=== PATIENT | male | born 1955 | race Caucasian/White ===

== ENCOUNTER → 2016-11-27 | Outpatient (CLI) | payer BC ==
--- NOTE | 2016-11-27 17:20 | CT ---
EXAMINATION TYPE: CT urogram wo/w con DATE OF EXAM: 11/27/2016 4:58 PM COMPARISON: Previous CT scan of the chest, abdomen and pelvis dated 08/27/2015. HISTORY: Episode of hematuria. History of prostate cancer CT DLP: 2176.2 mGycm Automated exposure control for dose reduction was used. CONTRAST: Performed with IV Contrast, patient injected with 100 mL of Omnipaque 350. FINDINGS: Visualized portions of the lungs are clear. There is no pleural or pericardial fluid. The h eart is mildly enlarged. Within the abdomen, the liver, spleen and gallbladder are normal. Both adrenal glands are normal. There is a stable, 9.4 nonobstructing calculus in the posterior mid polar calyx of the right kidney. There is a 2.9 cm low attenuating lesion arising from the mid polar region of the right kidney. Time evaluation mean value is 66.76 which is above that of normal fluid. This, however has not progressed from the previous study. There is a stable 4.8 cm, simple appearing cyst seen arising from the lower pole of the left kidney and immediately adjacent to this is an attenuating 1.5 cm lesion. Previously this measured 1.2 cm. The pancreas is unremarkable. The nodule posteriorly on the right in the bladder has increased in size from 11.5 mm to 21.1 mm. There is no significant diverticular change and there is no evidence of diverticulitis. Small bowel loops are normal. No free air and no free fluid is seen. There is facet arthropathy within the lumbar spine. No blastic or lytic lesions are seen. IMPRESSION: 1. ENLARGING LESION IN THE POSTERIOR ASPECT OF THE BLADDER. 2. STABLE HYPOATTENUATING LESION IN THE RIGHT KIDNEY. 3. STABLE NONOBSTRUCTING 9.4 MM CALCULUS IN THE POSTERIOR MID POLAR CALYX OF THE RIGHT KIDNEY. 4. ENLARGING LESION IN THE LEFT LOWER POLE WHICH HAS GONE FROM 1.2 CM TO 1.5 CM. 5. DEGENERATIVE CHANGES WITHIN THE SPINE.
== END | disposition home or self-care (01) ==
LOC: RADCTMAIN 15:25
PROVIDERS: ATTEND Urology
DX: N20.0 Calculus of kidney (principal); N32.89 Other specified disorders of bladder; N32.9 Bladder disorder, unspecified; N28.89 Other specified disorders of kidney and ureter
CPT/HCPCS: 74178; 74400; Q9967

== ENCOUNTER 2017-01-08 11:42 | Day surgery (SDC) | payer BC ==
[2017-01-06 14:47] VITALS: BMI 29.7
[2017-01-08 12:28] VITALS: TEMP 98
[2017-01-08] MEDS: LACTATED RINGERS 1,000 ML IV SCH ×2 (12:50→12:55)
[2017-01-08] MEDS ORDERED: LIDOCAINE 1% 20 ML VIAL (10MG/ML) FOR IV START INTRADERMA ONE ×2 (12:50→12:55)
[2017-01-08] MEDS ORDERED: PROPOFOL 10 MG/ML 20 ML VIAL IV ONE (13:14)
--- NOTE | 2017-01-08 13:28 | P.PCN ---
Date of Procedure: 01/08/17 Procedure(s) Performed: BRIEF HISTORY: Patient is a 61-year-old pleasant white male, scheduled for an elective sigmoid scope he as a part of evaluation of intermittent rectal bleeding for the last 1 month duration. The patient was recently diagnosed with prostate cancer with metastasis to the bladder. He scheduled for a flexible sigmoidoscopy to rule out rectal involvement. PROCEDURE PERFORMED: Flexible sigmoidoscopy PREOPERATIVE DIAGNOSIS: Rectal bleeding/history of prostate CA with bladder involvement. IV sedation per Anesthesia. PROCEDURE: After informed consent was obtained, the patient, was brought into the endoscopy unit. IV sedation was administered by Anesthesia under continuous monitoring. Digital rectal examination was normal. Initially the Olympus CF- 160 flexible video colonoscope was then inserted in the rectum, gradually advanced into the spell flexure and carefully examination was performed as the scope was gradually being withdrawn. The mucosa of descending colon, sigmoid colon, and rectum appeared normal. Retroflexion was performed in the rectum and small internal hemorrhoids were seen. The patient tolerated the procedure well. IMPRESSION: Normal-appearing colon from rectum to splenic flexure with no evidence of colitis, colorectal neoplasia. Small internal hemorrhoids. RECOMMENDATIONS: Findings of this examination were discussed with the patient as well as his family. He was advised to be a high-fiber diet and take fiber supplements on a regular basis.
[2017-01-08 13:29] VITALS: RESP 18
[2017-01-08 13:57] VITALS: BP 136/79; PULSE 55
== END 2017-01-08 14:15 | disposition home or self-care (01) ==
LOC: ORWHC2ENDO 11:42
PROVIDERS: ATTEND Internal Medicine Gastroenterology
DX: K64.8 Other hemorrhoids (principal); Z87.19 Personal history of other diseases of the digestive system; Z85.46 Personal history of malignant neoplasm of prostate; Z85.51 Personal history of malignant neoplasm of bladder; I10 Essential (primary) hypertension; Z86.73 Personal history of transient ischemic attack (TIA), and cerebral infarction without residual deficits; K21.9 Gastro-esophageal reflux disease without esophagitis; Z79.899 Other long term (current) drug therapy; Z88.1 Allergy status to other antibiotic agents; Z88.5 Allergy status to narcotic agent; Z88.0 Allergy status to penicillin; Z88.2 Allergy status to sulfonamides; Z91.018 Allergy to other foods
CPT/HCPCS: 45330; J2704

== ENCOUNTER 2017-04-25 12:24 | Inpatient (IN) | payer BC ==
[2017-04-25] MEDS ORDERED: SODIUM CHLORIDE 0.9% 1,000 ML IV STA ×2 (12:40→14:51)
[2017-04-25] MEDS ORDERED: MORPHINE SULFATE 4 MG/ML SYRINGE IV STA (12:40)
--- NOTE | 2017-04-25 12:40 | ED ---
General Adult HPI - General Chief complaint: Abdominal Pain Stated complaint: Back Pain Time Seen by Provider: 04/25/17 12:39 Source: patient, RN notes reviewed, old records reviewed Mode of arrival: wheelchair Limitations: no limitations - History of Present Illness Initial comments: This is a 61-year-old male here for evaluation of the. Patient presented here for evaluation regarding about pain abdominal pain left-sided flank pain. Severe. Presents complaints he has kidney stone. Recent radiation therapy for prostate CA, patient did have urine test 3 days ago which was negative for urinary tract infection. Patient has no nausea vomiting, no fever, episodic diarrhea. Patient states he does have history of celiac disease and thinks that 's related and and Bentyl related. Patient has been episodic for about 3-4 weeks now which is progressively worse over the last 3 days - Related Data Home Medications Medication Instructions Recorded Confirmed Melatonin 3 mg PO HS PRN 04/14/16 04/25/17 Multivitamin [Men's Multi-Vitamin] 1 tab PO HS 04/14/16 04/25/17 Vitamin B Complex 1 cap PO HS 04/14/16 04/25/17 cloNIDine HCL [Catapres] 0.1 mg PO BID 04/14/16 04/25/17 Chlorthalidone 25 mg PO DAILY 04/25/17 04/25/17 Tamsulosin [Flomax] 0.4 mg PO DAILY 04/25/17 04/25/17 Previous Rx's Medication Instructions Recorded Lisinopril [Zestril] 40 mg PO DAILY #60 tab 04/16/16 Allergies Allergy/AdvReac Type Severity Reaction Status Date / Time gluten Allergy Abdominal Verified 04/25/17 13:40 Pain hydrocodone bitartrate Allergy Abdominal Verified 04/25/17 13:40 [From Vicodin] Pain nitrofurantoin Allergy Unknown Verified 04/25/17 13:40 [From Macrobid] nitrofurantoin Allergy Unknown Verified 04/25/17 13:40 macrocrystalline [From Macrobid] Penicillins Allergy Rash/Hives Verified 04/25/17 13:40 Sulfa (Sulfonamide Allergy Rash/Hives Verified 04/25/17 13:40 Antibiotics) sulfacetamide sodium Allergy Rash/Hives Verified 04/25/17 13:40 [From Sulfamide] Review of Systems ROS Statement: Those systems with pertinent positive or pertinent negative responses have been documented in the HPI. ROS Other: All systems not noted in ROS Statement are negative. Past Medical History Past Medical History: CVA/TIA, GERD/Reflux, GI Bleed, Hypertension, Osteoarthritis (OA) Additional Past Medical History / Comment(s): PROSTATE CANCER, RIGHT BUNDLE BLOCK, HEART MURMUR, (2) TIA'S, CELIAC DISEASE-FOLLOWS GLUTEN FREE DIET,HX OF SHINGLES X3, CYSTS ON KIDNEYS, HIATAL HERNIA. History of Any Multi-Drug Resistant Organisms: None Reported Past Surgical History: Adenoidectomy, Heart Catheterization, Hernia Repair, Orthopedic Surgery, Prostate Surgery, Tonsillectomy Additional Past Surgical History / Comment(s): CERVICAL SPINAL FUSION X2-BONE TAKEN FROM HIP FOR CERVICAL FUSION WHICH HERNIATED X2 AT SITE., PROSTATECTOMY, KENYON ROTATOR CUFF REPAIR, ING HERNIA. Past Anesthesia/Blood Transfusion Reactions: No Reported Reaction, Motion Sickness Past Psychological History: No Psychological Hx Reported Smoking Status: Never smoker Past Alcohol Use History: None Reported Past Drug Use History: None Reported - Past Family History Father Family Medical History: Cancer, Hypertension, Prostate Disorder Additional Family Medical History / Comment(s): prostate cancer at age 87 Mother Family Medical History: Cancer Additional Family Medical History / Comment(s): colon ca, General Exam Limitations: no limitations General appearance: alert, in no apparent distress, anxious Head exam: Present: atraumatic, normocephalic, normal inspection Eye exam: Present: normal appearance, PERRL, EOMI. Absent: scleral icterus, conjunctival injection, periorbital swelling ENT exam: Present: normal exam, mucous membranes moist Neck exam: Present: normal inspection. Absent: tenderness, meningismus, lymphadenopathy Respiratory exam: Present: normal lung sounds bilaterally. Absent: respiratory distress, wheezes, rales, rhonchi, stridor Cardiovascular Exam: Present: regular rate, normal rhythm, normal heart sounds. Absent: systolic murmur, diastolic murmur, rubs, gallop, clicks GI/Abdominal exam: Present: soft, normal bowel sounds. Absent: distended, tenderness, guarding, rebound, rigid Extremities exam: Present: normal inspection, full ROM, normal capillary refill. Absent: tenderness, pedal edema, joint swelling, calf tenderness Back exam: Present: normal inspection Neurological exam: Present: alert, oriented X3, CN II-XII intact Psychiatric exam: Present: normal affect, normal mood Skin exam: Present: warm, dry, intact, normal color. Absent: rash Course Vital Signs 04/25/17 12:33 Temperature 98.1 F Pulse Rate 88 Respiratory 18 Rate Blood Pressure 121/85 O2 Sat by Pulse 98 Oximetry - Reevaluation(s) Reevaluation #1: 04/25/17 14:53 Patient does have mild pain control at this time although still with pain, no nausea or vomiting patient does admit to having a bowel movement yesterday Medical Decision Making - Medical Decision Making 58 female here for evaluation of severe abdominal pain. Patient thinks kidney stone, CT shows ileus, patient has ileus likely related to recent radiation, will admit for nothing by mouth IV hydration and pain control - Lab Data Result diagrams: 04/25/17 13:00 04/25/17 13:00 Lab Results 04/25/17 04/25/17 04/25/17 Range/Units 13:00 13:00 13:00 WBC 7.1 (3.8-10.6) k/uL RBC 4.73 (4.30-5.90) m/uL Hgb 14.6 (13.0-17.5) gm/dL Hct 42.0 (39.0-53.0) % MCV 88.7 (80.0-100.0) fL MCH 30.7 (25.0-35.0) pg MCHC 34.6 (31.0-37.0) g/dL RDW 14.4 (11.5-15.5) % Plt Count 203 (150-450) k/uL Neutrophils % 58 % Lymphocytes % 6 % Monocytes % 5 % Eosinophils % 27 % Basophils % 1 % Neutrophils # 4.1 (1.3-7.7) k/uL Lymphocytes # 0.4 L (1.0-4.8) k/uL Monocytes # 0.4 (0-1.0) k/uL Eosinophils # 1.9 H (0-0.7) k/uL Basophils # 0.1 (0-0.2) k/uL Manual Slide Review Performed Sodium 140 (137-145) mmol/L Potassium 3.8 (3.5-5.1) mmol/L Chloride 102 (98-107) mmol/L Carbon Dioxide 28 (22-30) mmol/L Anion Gap 10 mmol/L BUN 16 (9-20) mg/dL Creatinine 0.86 (0.66-1.25) mg/dL Est GFR (MDRD) Af Amer >60 (>60 ml/min/1.73 sqM) Est GFR (MDRD) Non-Af >60 (>60 ml/min/1.73 sqM) Glucose 111 H (74-99) mg/dL Plasma Lactic Acid Amaury 1.8 (0.7-2.0) mmol/L Calcium 9.2 (8.4-10.2) mg/dL Total Bilirubin 0.6 (0.2-1.3) mg/dL AST 27 (17-59) U/L ALT 37 (21-72) U/L Alkaline Phosphatase 111 (38-126) U/L Total Protein 6.6 (6.3-8.2) g/dL Albumin 3.9 (3.5-5.0) g/dL Amylase 53 (30-110) U/L Lipase 59 (23-300) U/L Urine Color Urine Appearance (Clear) Urine pH (5.0-8.0) Ur Specific [place] (1.001-1.035) Urine Protein (Negative) Urine Glucose (UA) (Negative) Urine Ketones (Negative) Urine Blood (Negative) Urine Nitrite (Negative) Urine Bilirubin (Negative) Urine Urobilinogen (<2.0) mg/dL Ur Leukocyte Esterase (Negative) Urine RBC (0-5) /hpf Urine WBC (0-5) /hpf Urine Mucus (None) /hpf 04/25/17 Range/Units 13:00 WBC (3.8-10.6) k/uL RBC (4.30-5.90) m/uL Hgb (13.0-17.5) gm/dL Hct (39.0-53.0) % MCV (80.0-100.0) fL MCH (25.0-35.0) pg MCHC (31.0-37.0) g/dL RDW (11.5-15.5) % Plt Count (150-450) k/uL Neutrophils % % Lymphocytes % % Monocytes % % Eosinophils % % Basophils % % Neutrophils # (1.3-7.7) k/uL Lymphocytes # (1.0-4.8) k/uL Monocytes # (0-1.0) k/uL Eosinophils # (0-0.7) k/uL Basophils # (0-0.2) k/uL Manual Slide Review Sodium (137-145) mmol/L Potassium (3.5-5.1) mmol/L Chloride (98-107) mmol/L Carbon Dioxide (22-30) mmol/L Anion Gap mmol/L BUN (9-20) mg/dL Creatinine (0.66-1.25) mg/dL Est GFR (MDRD) Af Amer (>60 ml/min/1.73 sqM) Est GFR (MDRD) Non-Af (>60 ml/min/1.73 sqM) Glucose (74-99) mg/dL Plasma Lactic Acid Amaury (0.7-2.0) mmol/L Calcium (8.4-10.2) mg/dL Total Bilirubin (0.2-1.3) mg/dL AST (17-59) U/L ALT (21-72) U/L Alkaline Phosphatase (38-126) U/L Total Protein (6.3-8.2) g/dL Albumin (3.5-5.0) g/dL Amylase (30-110) U/L Lipase (23-300) U/L Urine Color Yellow Urine Appearance Clear (Clear) Urine pH 5.5 (5.0-8.0) Ur Specific [place] 1.011 (1.001-1.035) Urine Protein Negative (Negative) Urine Glucose (UA) Negative (Negative) Urine Ketones Negative (Negative) Urine Blood Moderate H (Negative) Urine Nitrite Negative (Negative) Urine Bilirubin Negative (Negative) Urine Urobilinogen <2.0 (<2.0) mg/dL Ur Leukocyte Esterase Negative (Negative) Urine RBC 9 H (0-5) /hpf Urine WBC 5 (0-5) /hpf Urine Mucus Rare H (None) /hpf - Radiology Data Radiology results: report reviewed (CT pelvis positive for ileus), image reviewed Disposition Clinical Impression: Abdominal pain Disposition: ADMITTED IP TO THIS [facility] Condition: Fair Referrals: Andres Quinn DO [Primary Care Provider] - 1-2 days
[2017-04-25 13:12] LABS: Basophils # (A) 0.1 k/uL (0-0.2); Basophils % (A) 1 %; CH 32.4; CHCM 36.7; Eosinophils # (A) 1.9 k/uL (0-0.7); Eosinophils % (A) 27 %; HDW 2.89; HGB 14.6 gm/dL (13.0-17.5); Luc # (Auto) 0.18; Luc % (Auto) 3; Lymphocytes # (A) 0.4 k/uL (1.0-4.8); Lymphocytes % (A) 6 %; MCH 30.7 pg (25.0-35.0); MCHC 34.6 g/dL (31.0-37.0); MCV 88.7 fL (80.0-100.0); Mean Platelet Volume 6.7; Monocytes # (A) 0.4 k/uL (0-1.0); Monocytes % (A) 5 %; Neutrophils # (A) 4.1 k/uL (1.3-7.7); Neutrophils % (A) 58 %; RBC 4.73 m/uL (4.30-5.90); RDW 14.4 % (11.5-15.5); WBC 7.1 k/uL (3.8-10.6); WBC (Perox) 7.02
[2017-04-25 13:20] LABS: ALT 37 U/L (21-72); AST 27 U/L (17-59); Alkaline Phosphatase 111 U/L (38-126); Amylase 53 U/L (30-110); Anion Gap 10 mmol/L; Blood Urea Nitrogen 16 mg/dL (9-20); Calcium 9.2 mg/dL (8.4-10.2); Carbon Dioxide 28 mmol/L (22-30); Chloride 102 mmol/L (98-107); Glucose 111 mg/dL (74-99); Non-African American GFR(MDRD) >60 (>60 ml/min/1.73 sqM); Potassium 3.8 mmol/L (3.5-5.1); Sodium 140 mmol/L (137-145); Total Bilirubin 0.6 mg/dL (0.2-1.3); Total Protein 6.6 g/dL (6.3-8.2)
[2017-04-25 13:25] LABS: Appearance,Urine Clear (Clear); Bilirubin,Urine Negative (Negative); Glucose,Urine (UA) Negative (Negative); Ketones,Urine Negative (Negative); Leukocyte Esterase,Urine Negative (Negative); Mucus,Urine Rare /hpf; Nitrite,Urine Negative (Negative); PH, Urine 5.5 (5.0-8.0); Particle Count 2035; Protein,Urine Negative (Negative); RBC,Urine 9 /hpf (0-5); Specific Gravity,Urine 1.011 (1.001-1.035); UA Billing (MACRO vs. MICRO) MICRO; Urobilinogen,Urine <2.0 mg/dL (<2.0); WBC,Urine 5 /hpf (0-5)
[2017-04-25 13:35] LABS: Manual Review Performed
--- NOTE | 2017-04-25 14:10 | CT ---
EXAMINATION TYPE: CT abdomen pelvis wo con DATE OF EXAM: 04/25/2017 COMPARISON: 11/27/2016 HISTORY: Abdominal pain/back pain-right side CT DLP: 531.3 mGycm Automated exposure control for dose reduction was used. TECHNIQUE: Helical acquisition of images was performed from the lung bases through the pelvis. FINDINGS: Evaluation of the hollow and solid viscera is limited secondary to lack of intravenous cont rast. LUNG BASES: No significant abnormality is appreciated. LIVER/GB: No significant abnormality is appreciated. PANCREAS: No significant abnormality is seen. SPLEEN: No significant abnormality is seen. Small splenule is seen adjacent to the [place] spleen. ADRENALS: No significant abnormality is seen. KIDNEYS: There is no evidence of hydronephrosis or obstructive uropathy bilaterally. The previously d escribed urinary bladder mass has presumably been resected in the interim. Urinary bladder is incompl etely distended on this examination. Emanating from the posterior medial right midpole there is an approximately 2.3 cm renal lesion which does not fit criteria for simple cyst. This was an enhancing lesion on the prior examination, and so mewhat suspicious. Stable exophytic subcentimeter left upper pole renal cyst as well as simple left l ower pole renal cyst measuring approximately 4.6 cm. Adjacent high density 1.4 cm renal lesion has no t significantly changed and may represent a cyst with internal hemorrhage or proteinaceous debris. 1. 2 cm right midpole renal calculus is unchanged from the prior study. FREE AIR: No free air is visualized RETROPERITONEAL ADENOPATHY: None visualized REPRODUCTIVE ORGANS: No significant abnormality is seen URINARY BLADDER: No significant abnormality is seen. PELVIC ADENOPATHY: None visualized. OSSEOUS STRUCTURES: Degenerative changes of the femoral acetabular joints and lumbosacral spine are noted. No suspicious osseous lesions. Punctate sclerotic focus is within L5 likely represents a bone island as it was present on the prior exam and is unchanged. BOWEL: Numerous loops of fluid-filled and prominent small bowel are scattered throughout the entiret y of the abdomen measuring up to 3.0 cm. A few loops are not as dilated but do not appear decompresse d and there is no focal transition point. Terminal ileum is also prominent and fluid-filled. Air and stool are noted within the colon which is within normal limits. Sigmoid diverticula are present without pericolonic fat stranding. IMPRESSION: 1. NUMEROUS LOOPS OF PROMINENT FLUID-FILLED SMALL BOWEL SCATTERED THROUGHOUT THE ABDOMEN WITHOUT [place] SITION POINT MOST CONSISTENT WITH ADYNAMIC ILEUS. 2. SIMILAR NONOBSTRUCTING RIGHT RENAL CALCULUS. 3. CONTINUED ENLARGEMENT OF THE SUSPICIOUS RIGHT MIDPOLE RENAL LESION, DEMONSTRATING ENHANCEMENT ON T HE PRIOR EXAMINATION. CONSIDERATION FOR PERCUTANEOUS BIOPSY IS RECOMMENDED. 4. OTHER BENIGN-APPEARING SIMILAR RENAL LESIONS DESCRIBED ABOVE. 5. SIGMOID DIVERTICULOSIS WITHOUT EVIDENCE OF DIVERTICULITIS.
[2017-04-25] MEDS ORDERED: SODIUM CHLORIDE 0.9% 1,000 ML IV ONE (14:49)
[2017-04-25] MEDS ORDERED: MORPHINE SULFATE 4 MG/ML SYRINGE IVP PRN (14:49)
[2017-04-25] MEDS ORDERED: ONDANSETRON 4 MG/2 ML VIAL IVP PRN (14:49)
[2017-04-25] MEDS ORDERED: DICYCLOMINE 10 MG/ML 2 ML AMP IM STA (14:49)
[2017-04-25] MEDS ORDERED: DEXTROSE 5%-0.45% NACL 1,000 ML IV ONE (14:51)
[2017-04-25] MEDS ORDERED: NALOXONE 0.4 MG/ML 1 ML VIAL IV PRN (15:51)
[2017-04-25] MEDS ORDERED: BISACODYL 5 MG TABLET.DR PO PRN (15:51)
[2017-04-25] MEDS ORDERED: MELATONIN 3 MG TABLET PO PRN (15:54)
[2017-04-25] MEDS ORDERED: KETOROLAC 30 MG/ML 1 ML VIAL IVP PRN (16:28)
[2017-04-25 18:16] VITALS: BMI 28.8
[2017-04-25] MEDS: SODIUM CHLORIDE 0.9% 1,000 ML IV SCH (18:37)
--- NOTE | 2017-04-25 19:24 | P.HPIM ---
History of Present Illness H&P Date: 04/25/17 Chief Complaint: Severe progressive abdominal pain 61-year-old male with past medical history of prostate cancer with metastases to the bladder currently receiving radiation therapy. He presented to the emergency department with a complaint of sudden worsening of his abdominal pain. He reports that he's been experiencing abdominal pain since April 03 it was off-and-on colicky in nature when it comes usually over his left side of the belly which felt like previous attacks of kidney stones that he had. Not up until recently when he started worsening however it was not associated with any nausea or vomiting or any diarrhea or changes in his bowel habits. After discussion with his urologist he recommended obtaining a CAT scan next week. However overnight yesterday he felt that his pain got worse 10 out of 10 in severity over the left side of the belly and central abdomen abdominal sharp in nature no exacerbating or relieving factors but this time was associated with a blowouts of large volume diarrhea brownish in color nonbloody non-no melena still not associated with any nausea or vomiting no fevers no chills no sick contacts is denying any associated chest pain or trouble breathing or any tenesmus. He reports that he was diagnosed with prostate cancer 5 years ago for which surgery was performed and removal of the cancer he did not receive any chemo or radiotherapy at that time however popped back in October 2016 he noticed blood in his urine for which cystoscopy was performed and showed a mass on his bladder and later was found to be metastatic prostate cancer for which she is currently receiving radiation therapy he has received 39 sessions and last session of radiation therapy was on April 01 2 days later the above symptoms started. Currently patient is seen on the medical floor he seems very comfortable laying down in bed not in any acute distress reporting the above history denies any current abdominal pain at this time and eager to eat. Patient has received IV fluid hydration in the ED and was admitted under observation for monitoring for 24 hours CAT scan of the abdomen was performed showed diffuse ileus with no obstruction, also showed a right kidney stone that the patient is aware of, and showed a complex lesion over the mid pole of the left kidneys measuring 2.3 cm in size. Review of Systems Constitutional: Patient reports no fever, no chills, no night sweating, no significant weight changes Eyes: Patient reports no visual changes, no eye pain ENT: Patient reports no ear pain, no rhinorrhea, no sore throat Cardiovascular: Patient reports no chest pain, no exertional dyspnea, no peripheral leg edema, no orthopnea, no paroxysmal nocturnal dyspnea Respiratory:Patient reports no cough, no wheezing, no shortness of breath Gastrointestinal: Patient reports no constipation, no nausea no vomiting Genitourinary: Patient reports no dysuria, no hematuria, no changes in urinary habits, no genital lesions, does report though occasional blood clots in his urine Musculoskeletal: Patient reports no muscle pain, no joint pain Psychiatric: Patient reports no changes in mood or memory, no suicidal ideation , no anxiety Endocrine: Patient reports no heat intolerance, no cold intolerance, no excessive thirst, no polyuria Neurological: Patient reports no focal neurologic deficits, no weakness, no numbness, no tingling Hem/Lymphatic: Patient reports no bleeding tendency, no bruising, no swollen lymph glands Allergic/Immun: Patient reports no recent allergic reactions Skin: Patient reports no rashes, no pruritis, no ulcers Past Medical History Past Medical History: GERD/Reflux, GI Bleed, Hypertension, Osteoarthritis (OA) Additional Past Medical History / Comment(s): PROSTATE CANCER, RIGHT BUNDLE BLOCK, HEART MURMUR, (2) TIA'S, CELIAC DISEASE-FOLLOWS GLUTEN FREE DIET,HX OF SHINGLES X3, CYSTS ON KIDNEYS, HIATAL HERNIA. History of Any Multi-Drug Resistant Organisms: None Reported Past Surgical History: Adenoidectomy, Heart Catheterization, Hernia Repair, Orthopedic Surgery, Prostate Surgery, Tonsillectomy Additional Past Surgical History / Comment(s): CERVICAL SPINAL FUSION X2-BONE TAKEN FROM HIP FOR CERVICAL FUSION WHICH HERNIATED X2 AT SITE., PROSTATECTOMY, KENYON ROTATOR CUFF REPAIR, ING HERNIA. Past Anesthesia/Blood Transfusion Reactions: No Reported Reaction, Motion Sickness Past Psychological History: No Psychological Hx Reported Smoking Status: Never smoker Past Alcohol Use History: None Reported Past Drug Use History: None Reported - Past Family History Father Family Medical History: Cancer, Hypertension, Prostate Disorder Additional Family Medical History / Comment(s): prostate cancer at age 87 Mother Family Medical History: Cancer Additional Family Medical History / Comment(s): colon ca, Medications and Allergies Home Medications and Allergies Comment(s): home medications reviewed Home Medications Medication Instructions Recorded Confirmed Type Melatonin 3 mg PO HS PRN 04/14/16 04/25/17 History Multivitamin [Men's Multi-Vitamin] 1 tab PO HS 04/14/16 04/25/17 History Vitamin B Complex 1 cap PO HS 04/14/16 04/25/17 History cloNIDine HCL [Catapres] 0.1 mg PO BID 04/14/16 04/25/17 History Chlorthalidone 25 mg PO DAILY 04/25/17 04/25/17 History Tamsulosin [Flomax] 0.4 mg PO DAILY 04/25/17 04/25/17 History Allergies Allergy/AdvReac Type Severity Reaction Status Date / Time gluten Allergy Abdominal Verified 04/25/17 13:40 Pain hydrocodone bitartrate Allergy Abdominal Verified 04/25/17 13:40 [From Vicodin] Pain nitrofurantoin Allergy Unknown Verified 04/25/17 13:40 [From Macrobid] nitrofurantoin Allergy Unknown Verified 04/25/17 13:40 macrocrystalline [From Macrobid] Penicillins Allergy Rash/Hives Verified 04/25/17 13:40 Sulfa (Sulfonamide Allergy Rash/Hives Verified 04/25/17 13:40 Antibiotics) sulfacetamide sodium Allergy Rash/Hives Verified 04/25/17 13:40 [From Sulfamide] Physical Exam Vitals: Vital Signs Temp Pulse Pulse Resp BP BP Pulse Ox 04/25/17 18:27 57 L 18 04/25/17 16:06 98.1 F 57 L 18 119/74 96 04/25/17 15:09 98.1 F 57 L 18 119/74 96 04/25/17 15:00 97.8 F 71 16 131/81 97 04/25/17 12:33 98.1 F 88 18 121/85 98 Intake and Output 04/25/17 04/25/17 04/25/17 06:59 14:59 22:59 Other: # Voids 1 # Bowel Movements 0 Weight 88.451 kg 88.45 kg Patient Weight 04/26/17 06:59 Weight 88.45 kg Constitutional: No acute distress, conversant, pleasant Eyes: Anicteric sclerae, moist conjunctiva, no lid-lag Pupils equal round reactive to light ENMT: NC/AT Oropharynx clear, no erythema, exudates Neck: Supple, FROM, no masses, or JVD No carotid bruits No thyromegaly Lungs: Clear to auscultation Clear to percussion Normal respiratory effort, no accessory muscle use Cardiovascular: Heart regular in rate and rhythm, No murmurs, gallops, or rubs No peripheral edema Abdominal: Soft, tympanic to percussion over transverse and descending colon Nontender, no guarding, rebound or rigidity Abdomen moving with respiration Normoactive bowel sounds No hepatomegaly, No splenomegaly No palpable mass No abdominal wall hernia noted no tenderness upon percussion of the Costovertebral angle Skin: Normal temperature, tone, texture, turgor No induration No subcutaneous nodules No rash, lesions No ulcers Extremities: No digital cyanosis No clubbing Pedal pulses intact and symmetrical Radial pulses intact and symmetrical No calf tenderness Psychiatric: Alert and oriented to person, place and time Appropriate affect fair judgement Neuro Muscles Strength 5/5 in all 4 extremities Sensation to light touch grossly present throughout Cranial nerves II-XII grossly intact No focal sensory deficits Lymphatics: no palpable cervical or supraclavicular , or inguinal lymph nodes Results Results: reviewed CBC & Chem 7: 04/25/17 13:00 04/25/17 13:00 Labs: Abnormal Lab Results - Last 24 Hours (Table) 04/25/17 04/25/17 04/25/17 Range/Units 13:00 13:00 13:00 Lymphocytes # 0.4 L (1.0-4.8) k/uL Eosinophils # 1.9 H (0-0.7) k/uL Glucose 111 H (74-99) mg/dL Urine Blood Moderate H (Negative) Urine RBC 9 H (0-5) /hpf Urine Mucus Rare H (None) /hpf Microbiology - Last 24 Hours (Table) 04/25/17 13:00 Urine Culture - Preliminary Urine,Clean Catch Thrombosis Risk Factor Assmnt - Choose All That Apply Each Risk Factor Represents 2 Points: Age 61-74 years Thrombosis Risk Factor Assessment Total Risk Factor Score: 2 Thrombosis Risk Factor Assessment Level: Low Risk Assessment and Plan (1) Abdominal pain Status: Acute (2) Kidney lesion Status: Acute (3) HTN (hypertension) Status: Acute Plan: patient will be started on supportive care avoid narcotics, which might worsen ileus IVF hydration monitor electrolytes and renal function Toradol for pain control trial of full liquid diet defer left kidney lesion workup to OP with his urologist, CT scan showed enlargement of the lesion if pain persists and localized to the left side of the abdomen , then it could be related to this lesion , then i would consider biopsy inpatient check urinalysis heparin sc for DVT PPX full code status
[2017-04-25] MEDS: cloNIDine HCL 0.1 MG TAB PO SCH (20:29)
[2017-04-25] MEDS ORDERED: MULTIVITAMINS, THERA 1 EACH TAB PO SCH (21:00)
[2017-04-25] MEDS ORDERED: B COMPLEX-VIT C-VIT E-ZINC 1 EACH TAB PO SCH (21:00)
[2017-04-25 21:28] VITALS: PULSE 65; RESP 16
[2017-04-26] MEDS: SODIUM CHLORIDE 0.9% 1,000 ML IV SCH ×2 (03:08→08:04)
[2017-04-26 07:32] VITALS: BP 127/81; TEMP 97.5
[2017-04-26 07:57] LABS: Basophils # (A) 0.1 k/uL (0-0.2); Basophils % (A) 1 %; CH 32.2; CHCM 36.2; Eosinophils # (A) 2.5 k/uL (0-0.7); Eosinophils % (A) 35 %; HCT 38.8 % (39.0-53.0); HDW 2.87; HGB 13.4 gm/dL (13.0-17.5); Luc % (Auto) 3; Lymphocytes # (A) 0.6 k/uL (1.0-4.8); Lymphocytes % (A) 8 %; MCHC 34.6 g/dL (31.0-37.0); MCV 89.4 fL (80.0-100.0); Mean Platelet Volume 7.2; Monocytes # (A) 0.5 k/uL (0-1.0); Monocytes % (A) 7 %; Neutrophils # (A) 3.2 k/uL (1.3-7.7); Neutrophils % (A) 46 %; RBC 4.34 m/uL (4.30-5.90); RDW 14.3 % (11.5-15.5); WBC 7.1 k/uL (3.8-10.6); WBC (Perox) 7.08
[2017-04-26] MEDS: cloNIDine HCL 0.1 MG TAB PO SCH (08:02)
[2017-04-26 08:12] LABS: ALT 36 U/L (21-72); AST 26 U/L (17-59); Alkaline Phosphatase 105 U/L (38-126); Anion Gap 7 mmol/L; Blood Urea Nitrogen 12 mg/dL (9-20); Calcium 8.6 mg/dL (8.4-10.2); Carbon Dioxide 25 mmol/L (22-30); Chloride 108 mmol/L (98-107); Glucose 90 mg/dL (74-99); Magnesium 1.6 mg/dL (1.6-2.3); Non-African American GFR(MDRD) >60 (>60 ml/min/1.73 sqM); Potassium 3.9 mmol/L (3.5-5.1); Sodium 140 mmol/L (137-145); Total Bilirubin 0.6 mg/dL (0.2-1.3)
[2017-04-26 08:49] LABS: Ovalocytes Present
[2017-04-26] MEDS ORDERED: LISINOPRIL 20 MG TAB PO SCH (09:00)
[2017-04-26] MEDS ORDERED: TAMSULOSIN 0.4 MG CAP.ER.24H PO SCH (09:00)
--- NOTE | 2017-04-26 18:58 | P.DS ---
Providers Date of admission: 04/25/17 14:51 Expected date of discharge: 04/26/17 Attending physician: Ada Hernandez DO Primary care physician: Andres Quinn - Discharge Diagnosis(es) (1) Abdominal pain Status: Acute (2) Kidney lesion Status: Acute (3) HTN (hypertension) Status: Acute Hospital Course: 61-year-old male with past medical history of prostate cancer with metastases to the bladder currently receiving radiation therapy. He presented to the emergency department with a complaint of sudden worsening of his abdominal pain. He reports that he's been experiencing abdominal pain since April 03 it was off-and-on colicky in nature when it comes usually over his left side of the belly which felt like previous attacks of kidney stones that he had. Not up until recently when he started worsening however it was not associated with any nausea or vomiting or any diarrhea or changes in his bowel habits. After discussion with his urologist he recommended obtaining a CAT scan next week. However overnight yesterday he felt that his pain got worse 10 out of 10 in severity over the left side of the belly and central abdomen abdominal sharp in nature no exacerbating or relieving factors but this time was associated with a blowouts of large volume diarrhea brownish in color nonbloody non-no melena still not associated with any nausea or vomiting no fevers no chills no sick contacts is denying any associated chest pain or trouble breathing or any tenesmus. He reports that he was diagnosed with prostate cancer 5 years ago for which surgery was performed and removal of the cancer he did not receive any chemo or radiotherapy at that time however popped back in October 2016 he noticed blood in his urine for which cystoscopy was performed and showed a mass on his bladder and later was found to be metastatic prostate cancer for which she is currently receiving radiation therapy he has received 39 sessions and last session of radiation therapy was on April 01 2 days later the above symptoms started. CAT scan of the abdomen was performed showed diffuse ileus with no obstruction, also showed a right kidney stone that the patient is aware of, and showed a complex lesion over the mid pole of the left kidneys measuring 2.3 cm in size. Patient is seen and examined today, he reports that he discussed with his urologist the findings over the left kidney, the urologist has reassured him and reported that this has been stable and recommended outpatient follow up. Patient reports no vomiting no nausea no abd pain . He is tolerating diet. He is eager to go home today. Patient had a bowel movement nonbloody no melena.. Constitutional: vital signs stable, Not in acute distress, pleasant, conversant Lungs: Clear to auscultation bilaterally, clear to percussion, normal respiratory effort no use of accessory muscles Cardiovascular: Regular rate and rhythm, no murmurs, no gallops, no rubs, no peripheral edema Gastrointestinal: Soft, no tenderness to palpation, no palpable hepatosplenomegally, bowel sounds positive, no abdominal wall hernias Extremities: no calf muscle tenderness Psych: Alert, oriented to place, person and time Patient reports that he has aides outside then probably had ingested some gluten with his history of celiac disease. I recommended to him to avoid wheats and spicy foods as he also has history of irritable bowel syndrome. More than 35 minutes were spent discharging this patient, and more than 50% of the time was spent in counseling the patient and family and in coordinating care. Pertinent Studies: Computed tomography scan of the abdomen showing diffuse ileus with no evidence of obstruction. Also showed a complex left kidney lesion that seemed to have increased in size compared to before. Patient Condition at Discharge: Good Plan - Discharge Summary New Discharge Prescriptions: Continue Multivitamin [Men's Multi-Vitamin] 1 tab PO HS cloNIDine HCL [Catapres] 0.1 mg PO BID Vitamin B Complex 1 cap PO HS Melatonin 3 mg PO HS PRN PRN Reason: Insomnia Lisinopril [Zestril] 40 mg PO DAILY #60 tab Tamsulosin [Flomax] 0.4 mg PO DAILY Chlorthalidone 25 mg PO DAILY Discharge Medication List Melatonin 3 mg PO HS PRN 04/14/16 [History] Multivitamin [Men's Multi-Vitamin] 1 tab PO HS 04/14/16 [History] Vitamin B Complex 1 cap PO HS 04/14/16 [History] cloNIDine HCL [Catapres] 0.1 mg PO BID 04/14/16 [History] Lisinopril [Zestril] 40 mg PO DAILY #60 tab 04/16/16 [Rx] Chlorthalidone 25 mg PO DAILY 04/25/17 [History] Tamsulosin [Flomax] 0.4 mg PO DAILY 04/25/17 [History] Follow up Appointment(s)/Referral(s): Andres Quinn DO [Primary Care Provider] - 04/28/17 3:00 pm Patient Instructions/Handouts: Celiac Disease (GEN), Gluten-Free Diet (GEN), Ileus (DC) Care Plan Goals (MU): follow up with your Urologist on the left kidney lesion. patient discussed the findings with his Urologist who has reviewed the CT results and informed him that he will follow up on the lesion which appears stable to him Discharge Disposition: HOME SELF-CARE
== END 2017-04-26 12:00 | disposition home or self-care (01) | DRG 389 ==
LOC: EC 12:24 → 5MS5E 14:51
PROVIDERS: ADMIT Internal Medicine; ATTEND Internal Medicine
DX: K56.7 Ileus, unspecified (principal); C79.11 Secondary malignant neoplasm of bladder; I10 Essential (primary) hypertension; K90.0 Celiac disease; K21.9 Gastro-esophageal reflux disease without esophagitis; N28.89 Other specified disorders of kidney and ureter; Z80.0 Family history of malignant neoplasm of digestive organs; Z80.42 Family history of malignant neoplasm of prostate; Z82.49 Family history of ischemic heart disease and other diseases of the circulatory system; Z85.46 Personal history of malignant neoplasm of prostate; Z98.1 Arthrodesis status; N20.0 Calculus of kidney; Z87.442 Personal history of urinary calculi; Z86.19 Personal history of other infectious and parasitic diseases; Z79.899 Other long term (current) drug therapy; Z88.1 Allergy status to other antibiotic agents; Z88.5 Allergy status to narcotic agent; Z88.0 Allergy status to penicillin; Z88.2 Allergy status to sulfonamides; Z92.3 Personal history of irradiation; N28.1 Cyst of kidney, acquired
CPT/HCPCS: 36415; 74176; 80053; 81001; 82150; 83605; 83690; 83735; 85025; 87086

== ENCOUNTER 2017-10-21 03:26 | Emergency (ER) | payer BC ==
[2017-10-21] MEDS ORDERED: SODIUM CHLORIDE 0.9% 500 ML IV STA (03:48)
[2017-10-21] MEDS ORDERED: RX INFO: IV CONTRAST WAS GIVEN 1 EACH MISC MISCELLANE PRN (03:48)
[2017-10-21] MEDS ORDERED: PANTOPRAZOLE 40 MG/10 ML VIAL IVP STA (03:48)
[2017-10-21] MEDS ORDERED: ONDANSETRON 4 MG/2 ML VIAL IVP STA (03:48)
[2017-10-21] MEDS ORDERED: SODIUM CHLORIDE 0.9% 1,000 ML IV STA (03:48)
[2017-10-21] MEDS: MORPHINE SULFATE 4 MG/ML SYRINGE IV STA ×2 (04:05→04:14)
[2017-10-21 04:10] LABS: Basophils # (A) 0.1 k/uL (0-0.2); Basophils % (A) 1 %; Eosinophils # (A) 0.2 k/uL (0-0.7); Eosinophils % (A) 5 %; HCT 40.7 % (39.0-53.0); HGB 13.6 gm/dL (13.0-17.5); Lymphocytes # (A) 0.7 k/uL (1.0-4.8); Lymphocytes % (A) 14 %; MCH 29.5 pg (25.0-35.0); MCHC 33.4 g/dL (31.0-37.0); MCV 88.5 fL (80.0-100.0); Mean Platelet Volume 6.3; Monocytes # (A) 0.5 k/uL (0-1.0); Monocytes % (A) 11 %; Neutrophils # (A) 3.2 k/uL (1.3-7.7); Neutrophils % (A) 67 %; Platelet Count 220 k/uL (150-450); RDW 12.5 % (11.5-15.5); WBC 4.7 k/uL (3.8-10.6)
[2017-10-21 04:10] LABS: Appearance,Urine Clear (Clear); Bilirubin,Urine Negative (Negative); Blood,Urine Negative (Negative); Color,Urine Yellow; Glucose,Urine (UA) Negative (Negative); Ketones,Urine Negative (Negative); Leukocyte Esterase,Urine Negative (Negative); Protein,Urine Negative (Negative); Specific Gravity,Urine 1.012 (1.001-1.035); Urobilinogen,Urine <2.0 mg/dL (<2.0)
--- NOTE | 2017-10-21 04:10 | ED ---
General Adult HPI - General Chief complaint: Abdominal Pain Stated complaint: abd pain Time Seen by Provider: 10/21/17 03:34 Source: patient, RN notes reviewed, old records reviewed Mode of arrival: ambulatory Limitations: no limitations - History of Present Illness Initial comments: This is a 62-year-old male the ER with abdominal pain right lower quadrant abdominal pain epigastric abdominal pain. Symptoms last night and but episodic for quite some time. Patient has had multiple abdominal surgeries as well as recent prostate surgery prostate cancer. Patient denies any fevers no change in bowel habits no modifying factors for pain. He took Motrin with no help. Patient states symptoms may be worse when he moves or bends over - Related Data Home Medications Medication Instructions Recorded Confirmed Melatonin 3 mg PO HS PRN 04/14/16 04/25/17 Multivitamin [Men's Multi-Vitamin] 1 tab PO HS 04/14/16 04/25/17 Vitamin B Complex 1 cap PO HS 04/14/16 04/25/17 cloNIDine HCL [Catapres] 0.1 mg PO BID 04/14/16 04/25/17 Chlorthalidone 25 mg PO DAILY 04/25/17 04/25/17 Tamsulosin [Flomax] 0.4 mg PO DAILY 04/25/17 04/25/17 Previous Rx's Medication Instructions Recorded Lisinopril [Zestril] 40 mg PO DAILY #60 tab 04/16/16 Allergies Allergy/AdvReac Type Severity Reaction Status Date / Time gluten Allergy Abdominal Verified 10/21/17 03:36 Pain hydrocodone bitartrate Allergy Abdominal Verified 10/21/17 03:36 [From Vicodin] Pain nitrofurantoin Allergy Unknown Verified 10/21/17 03:36 [From Macrobid] nitrofurantoin Allergy Unknown Verified 10/21/17 03:36 macrocrystalline [From Macrobid] Penicillins Allergy Rash/Hives Verified 10/21/17 03:36 Sulfa (Sulfonamide Allergy Rash/Hives Verified 10/21/17 03:36 Antibiotics) sulfacetamide sodium Allergy Rash/Hives Verified 10/21/17 03:36 [From Sulfamide] Review of Systems ROS Statement: Those systems with pertinent positive or pertinent negative responses have been documented in the HPI. ROS Other: All systems not noted in ROS Statement are negative. Past Medical History Past Medical History: Cancer, GERD/Reflux, GI Bleed, Hypertension, Osteoarthritis (OA) Additional Past Medical History / Comment(s): PROSTATE CANCER, RIGHT BUNDLE BLOCK, HEART MURMUR, (2) TIA'S, CELIAC DISEASE-FOLLOWS GLUTEN FREE DIET,HX OF SHINGLES X3, CYSTS ON KIDNEYS, HIATAL HERNIA. History of Any Multi-Drug Resistant Organisms: None Reported Past Surgical History: Adenoidectomy, Heart Catheterization, Hernia Repair, Orthopedic Surgery, Prostate Surgery, Tonsillectomy Additional Past Surgical History / Comment(s): CERVICAL SPINAL FUSION X2-BONE TAKEN FROM HIP FOR CERVICAL FUSION WHICH HERNIATED X2 AT SITE., PROSTATECTOMY, KENYON ROTATOR CUFF REPAIR, ING HERNIA. Past Anesthesia/Blood Transfusion Reactions: No Reported Reaction, Motion Sickness Past Psychological History: No Psychological Hx Reported Smoking Status: Never smoker Past Alcohol Use History: None Reported Past Drug Use History: None Reported - Past Family History Father Family Medical History: Cancer, Hypertension, Prostate Disorder Additional Family Medical History / Comment(s): prostate cancer at age 87 Mother Family Medical History: Cancer Additional Family Medical History / Comment(s): colon ca, General Exam Limitations: no limitations General appearance: alert, in no apparent distress Head exam: Present: atraumatic, normocephalic, normal inspection Eye exam: Present: normal appearance, PERRL, EOMI. Absent: scleral icterus, conjunctival injection, periorbital swelling ENT exam: Present: normal exam, mucous membranes moist Neck exam: Present: normal inspection. Absent: tenderness, meningismus, lymphadenopathy Respiratory exam: Present: normal lung sounds bilaterally. Absent: respiratory distress, wheezes, rales, rhonchi, stridor Cardiovascular Exam: Present: regular rate, normal rhythm, normal heart sounds. Absent: systolic murmur, diastolic murmur, rubs, gallop, clicks GI/Abdominal exam: Present: soft, normal bowel sounds. Absent: distended, tenderness, guarding, rebound, rigid Extremities exam: Present: normal inspection, full ROM, normal capillary refill. Absent: tenderness, pedal edema, joint swelling, calf tenderness Back exam: Present: normal inspection Neurological exam: Present: alert, oriented X3, CN II-XII intact Psychiatric exam: Present: normal affect, normal mood Skin exam: Present: warm, dry, intact, normal color. Absent: rash Course Vital Signs 02/10/21/17 10/21/17 03:32 05:23 07:14 Temperature 97.0 F L 98.2 F Pulse Rate 100 79 70 Respiratory 20 18 18 Rate Blood Pressure 145/97 125/83 114/79 O2 Sat by Pulse 98 97 100 Oximetry - Reevaluation(s) Reevaluation #1: Patient states his pain is episodic, his main concern is recurrence of cancer. Patient is not requiring any pain medication here in the ER Reevaluation #2: Spoke with patient at length regarding findings here in the emergency room, patient unsure if you want to stay in the hospital be discharged home, patient states she will follow-up with his oncologist tomorrow Medical Decision Making - Medical Decision Making 62 male with an unidentified abdominal pain. CT labwork is normal. Patient will be discharged home - Lab Data Result diagrams: 10/21/17 03:50 10/21/17 03:50 Lab Results 10/21/17 10/21/17 10/21/17 Range/Units 03:50 03:50 03:50 WBC 4.7 (3.8-10.6) k/uL RBC 4.60 (4.30-5.90) m/uL Hgb 13.6 (13.0-17.5) gm/dL Hct 40.7 (39.0-53.0) % MCV 88.5 (80.0-100.0) fL MCH 29.5 (25.0-35.0) pg MCHC 33.4 (31.0-37.0) g/dL RDW 12.5 (11.5-15.5) % Plt Count 220 (150-450) k/uL Neutrophils % 67 % Lymphocytes % 14 % Monocytes % 11 % Eosinophils % 5 % Basophils % 1 % Neutrophils # 3.2 (1.3-7.7) k/uL Lymphocytes # 0.7 L (1.0-4.8) k/uL Monocytes # 0.5 (0-1.0) k/uL Eosinophils # 0.2 (0-0.7) k/uL Basophils # 0.1 (0-0.2) k/uL Sodium 139 (137-145) mmol/L Potassium 3.4 L (3.5-5.1) mmol/L Chloride 100 (98-107) mmol/L Carbon Dioxide 27 (22-30) mmol/L Anion Gap 12 mmol/L BUN 27 H (9-20) mg/dL Creatinine 1.00 (0.66-1.25) mg/dL Est GFR (MDRD) Af Amer >60 (>60 ml/min/1.73 sqM) Est GFR (MDRD) Non-Af >60 (>60 ml/min/1.73 sqM) Glucose 96 (74-99) mg/dL Plasma Lactic Acid Amaury 1.9 (0.7-2.0) mmol/L Calcium 9.4 (8.4-10.2) mg/dL Total Bilirubin 0.6 (0.2-1.3) mg/dL AST 26 (17-59) U/L ALT 32 (21-72) U/L Alkaline Phosphatase 106 (38-126) U/L Total Protein 7.1 (6.3-8.2) g/dL Albumin 4.2 (3.5-5.0) g/dL Amylase 76 (30-110) U/L Lipase 130 (23-300) U/L Urine Color Urine Appearance (Clear) Urine pH (5.0-8.0) Ur Specific [place] (1.001-1.035) Urine Protein (Negative) Urine Glucose (UA) (Negative) Urine Ketones (Negative) Urine Blood (Negative) Urine Nitrite (Negative) Urine Bilirubin (Negative) Urine Urobilinogen (<2.0) mg/dL Ur Leukocyte Esterase (Negative) 10/21/17 Range/Units 04:03 WBC (3.8-10.6) k/uL RBC (4.30-5.90) m/uL Hgb (13.0-17.5) gm/dL Hct (39.0-53.0) % MCV (80.0-100.0) fL MCH (25.0-35.0) pg MCHC (31.0-37.0) g/dL RDW (11.5-15.5) % Plt Count (150-450) k/uL Neutrophils % % Lymphocytes % % Monocytes % % Eosinophils % % Basophils % % Neutrophils # (1.3-7.7) k/uL Lymphocytes # (1.0-4.8) k/uL Monocytes # (0-1.0) k/uL Eosinophils # (0-0.7) k/uL Basophils # (0-0.2) k/uL Sodium (137-145) mmol/L Potassium (3.5-5.1) mmol/L Chloride (98-107) mmol/L Carbon Dioxide (22-30) mmol/L Anion Gap mmol/L BUN (9-20) mg/dL Creatinine (0.66-1.25) mg/dL Est GFR (MDRD) Af Amer (>60 ml/min/1.73 sqM) Est GFR (MDRD) Non-Af (>60 ml/min/1.73 sqM) Glucose (74-99) mg/dL Plasma Lactic Acid Amaury (0.7-2.0) mmol/L Calcium (8.4-10.2) mg/dL Total Bilirubin (0.2-1.3) mg/dL AST (17-59) U/L ALT (21-72) U/L Alkaline Phosphatase (38-126) U/L Total Protein (6.3-8.2) g/dL Albumin (3.5-5.0) g/dL Amylase (30-110) U/L Lipase (23-300) U/L Urine Color Yellow Urine Appearance Clear (Clear) Urine pH 6.0 (5.0-8.0) Ur Specific [place] 1.012 (1.001-1.035) Urine Protein Negative (Negative) Urine Glucose (UA) Negative (Negative) Urine Ketones Negative (Negative) Urine Blood Negative (Negative) Urine Nitrite Negative (Negative) Urine Bilirubin Negative (Negative) Urine Urobilinogen <2.0 (<2.0) mg/dL Ur Leukocyte Esterase Negative (Negative) - Radiology Data Radiology results: report reviewed (CT of pelvis is negative for acute disease) , image reviewed Disposition Clinical Impression: Abdominal pain Disposition: HOME SELF-CARE Condition: Good Instructions: Abdominal Pain (ED) Referrals: Andres Quinn DO [Primary Care Provider] - 1-2 days
[2017-10-21] MEDS ORDERED: ACETAMINOPHEN IV (For NPO) 1,000 MG in EMPTY BAG 1 BAG IVPB STA (04:14)
[2017-10-21 04:20] LABS: ALT 32 U/L (21-72); AST 26 U/L (17-59); Albumin 4.2 g/dL (3.5-5.0); Alkaline Phosphatase 106 U/L (38-126); Amylase 76 U/L (30-110); Anion Gap 12 mmol/L; Blood Urea Nitrogen 27 mg/dL (9-20); Calcium 9.4 mg/dL (8.4-10.2); Carbon Dioxide 27 mmol/L (22-30); Chloride 100 mmol/L (98-107); Glucose 96 mg/dL (74-99); Lipase 130 U/L (23-300); Potassium 3.4 mmol/L (3.5-5.1); Sodium 139 mmol/L (137-145); Total Bilirubin 0.6 mg/dL (0.2-1.3); Total Protein 7.1 g/dL (6.3-8.2)
[2017-10-21 05:25] VITALS: RESP 18
--- NOTE | 2017-10-21 05:25 | CT ---
EXAM: CT Abdomen and Pelvis With Intravenous Contrast CLINICAL HISTORY: ITS.REASON CT Reason: abdominal pain TECHNIQUE: Axial computed tomography images of the abdomen and pelvis with intravenous contrast. DLP is 932.6 mGy-cm. This CT exam was performed using one or more of the following dose reduction techniques: automated exposure control, adjustment of the mA and/or kV according to patient size, and/or use of iterative reconstruction technique. COMPARISON: CT abdomen pelvis dated 04/25/2017. FINDINGS: Lower thorax: No acute findings. ABDOMEN: Liver: Unremarkable. No mass. Gallbladder and bile ducts: Unremarkable. No calcified stones. No ductal dilation. Pancreas: Unremarkable. No evidence of mass. No ductal dilation. Spleen: Small splenic calcifications may represent granulomas. Adrenals: Unremarkable. No mass. Kidneys and ureters: A hyperattenuating likely enhancing right renal lesion is unchanged in size, measuring up to 3.0 cm. There is either an adjacent nonobstructing renal calculus or associated calcification measuring up to 10 mm. This is also unchanged. Multiple simple appearing left renal cysts are unchanged. A hyperattenuating 11 mm left renal cyst is unchanged and likely represents a proteinaceous or hemorrhagic cyst. A 4.2 cm inferior pole left renal cyst contains somewhat thick peripheral calcification and a 3 mm thick enhancing wall. Stomach and bowel: Mild diverticulosis without definite evidence of diverticulitis. There is mild wall thickening of the sigmoid colon and perhaps minimal fat stranding adjacent to the sigmoid colon of uncertain significance. No obstruction. Appendix: No definite visualization of the appendix. No pericecal inflammatory changes. PELVIS: Bladder: Mildly thickened bladder wall diffusely of uncertain significance. Reproductive: Unremarkable as visualized. ABDOMEN and PELVIS: Intraperitoneal space: Unremarkable. No free air. No significant fluid collection. Bones/joints: No acute fracture. Soft tissues: Unremarkable. Vasculature: Unremarkable. No abdominal aortic aneurysm. Lymph nodes: Unremarkable. No enlarged lymph nodes. IMPRESSION: Reidentified 3.0 cm right renal lesion highly suspicious for neoplasm. Unchanged 4.2 cm Bosniak 2F left renal cyst. Additional 6 month follow- up suggested. Diverticulosis with wall thickening and questionable minimal fat stranding adjacent to the sigmoid colon. This is equivocal for diverticulitis.
[2017-10-21] MEDS ORDERED: KETOROLAC 30 MG/ML 1 ML VIAL IVP STA (05:39)
[2017-10-21 07:15] VITALS: BP 114/79; PULSE 70; TEMP 98.2
== END 2017-10-21 07:16 | disposition home or self-care (01) ==
LOC: EC 03:26
DX: R10.31 Right lower quadrant pain (principal); R10.13 Epigastric pain; I10 Essential (primary) hypertension; Z85.46 Personal history of malignant neoplasm of prostate; Z95.5 Presence of coronary angioplasty implant and graft; Z79.899 Other long term (current) drug therapy; Z91.018 Allergy to other foods; Z88.5 Allergy status to narcotic agent; Z88.1 Allergy status to other antibiotic agents; Z88.0 Allergy status to penicillin; Z88.2 Allergy status to sulfonamides; Z53.20 Procedure and treatment not carried out because of patient's decision for unspecified reasons; Z90.79 Acquired absence of other genital organ(s)
CPT/HCPCS: 99284 ×2; 96374 ×2; 96375 ×3; 96361 ×4; 36415; 80053; 82150; 83605; 83690; 85025; 81003; 87086; 74177; J2405; J1885; Q9967; J0131; C9113

== ENCOUNTER → 2017-12-23 | Outpatient (CLI) | payer BC ==
--- NOTE | 2017-12-23 13:27 | XR ---
EXAMINATION TYPE: XR KUB DATE OF EXAM: 12/23/2017 12:41 PM CLINICAL HISTORY: Nephrolithiasis on the right. TECHNIQUE: Single supine KUB image of the abdomen is obtained. COMPARISON: 04/20/2012. FINDINGS: Scattered gas is seen in non-distended small bowel loops. Gas and fecal material is seen in non-distended colon. There is no visceromegaly, pneumoperitoneum, or abnormal calcification apprecia joss. The lung bases are clear and the osseous structures are intact. Right renal calculus is again id entified measuring 1.1 cm, unchanged from the prior. Moderate multilevel degenerative changes of thor acolumbar spine are noted. IMPRESSION: 1. Unchanged right renal calculus measuring 1.1 cm. 2. Nonobstructive bowel gas pattern.
[2017-12-23 13:39] LABS: HGB 13.8 gm/dL (13.0-17.5); MCH 30.4 pg (25.0-35.0); MCHC 35.5 g/dL (31.0-37.0); MCV 85.6 fL (80.0-100.0); RBC 4.55 m/uL (4.30-5.90); WBC 4.2 k/uL (3.8-10.6)
[2017-12-23 13:40] LABS: Basophils # (A) 0.1 k/uL (0-0.2); Basophils % (A) 1 %; Eosinophils # (A) 0.1 k/uL (0-0.7); Eosinophils % (A) 3 %; Lymphocytes # (A) 0.6 k/uL (1.0-4.8); Lymphocytes % (A) 15 %; Mean Platelet Volume 6.7; Monocytes # (A) 0.4 k/uL (0-1.0); Monocytes % (A) 9 %; Neutrophils # (A) 2.9 k/uL (1.3-7.7); Neutrophils % (A) 70 %; Platelet Count 213 k/uL (150-450); RDW 12.2 % (11.5-15.5)
[2017-12-23 13:48] LABS: Blood Urea Nitrogen 27 mg/dL (9-20)
== END | disposition home or self-care (01) ==
LOC: RADXRMAIN 12:14
PROVIDERS: ATTEND Urology
DX: N20.0 Calculus of kidney (principal)
CPT/HCPCS: 36415; 74018; 82565; 84520; 85025

== ENCOUNTER → 2018-01-07 | Outpatient (CLI) | payer BC ==
--- NOTE | 2018-01-07 12:30 | XR ---
EXAMINATION TYPE: XR KUB DATE OF EXAM: 01/07/2018 HISTORY: F/U RIGHT SIDE RENAL STONES. Comparison: 12/23/2017 Single KUB is submitted for interpretation. Findings: Right renal calculi: 1.2 cm right renal calculus again noted. Overlying bowel content limits evaluati on. Right ureteral calculi: None Visualized. Left renal calculi: None Visualized. Left ureteral calculi: None Visualized. Pelvic calcifications: None Visualized. Bowel gas pattern is unremarkable. No free air. No mass effects. IMPRESSION: 1. Essentially stable right renal calculus.
== END | disposition home or self-care (01) ==
LOC: RADXRMAIN 11:46
PROVIDERS: ATTEND Urology
DX: N20.0 Calculus of kidney (principal)
CPT/HCPCS: 74018

== ENCOUNTER → 2018-04-18 | Outpatient (CLI) | payer BC ==
--- NOTE | 2018-04-18 10:24 | XR ---
EXAMINATION TYPE: XR cervical spine limited DATE OF EXAM: 04/18/2018 TECHNIQUE: Frontal, lateral, and open mouth view of the cervical spine are obtained. HISTORY: M47.812 Spondylosis surgical checkup. COMPARISON: Prior cervical spine x-ray November 02, 2011 FINDINGS: The cervical spine is visualized in its entirety from C1 thru the top of T1 level, it is s atisfactory in alignment without evidence of acute fracture or dislocation. There is redemonstration of anterior fusion plate with artificial disc material C3-C5 levels. Some interval ossific fusion at this level is present. There is redemonstration of ossific fusion at C5-C6 level. There is persistent moderate to severe disc space narrowing with more prominent severe anterior spurring C6-C7 level. St able Mild disc space narrowing C7-T1 level is identified. Suboptimal evaluation of C1-C2 articulation despite several attempts at open mouth view. Overlying soft tissue is unremarkable. IMPRESSION: Stable and satisfactory alignment C3-C5 level.
== END | disposition home or self-care (01) ==
LOC: RADXRMAIN 09:56
DX: M47.812 Spondylosis without myelopathy or radiculopathy, cervical region (principal)
CPT/HCPCS: 72040

== ENCOUNTER → 2018-04-26 | Outpatient (CLI) | payer BC ==
--- NOTE | 2018-04-27 07:44 | CT ---
EXAMINATION TYPE: CT brain wo con DATE OF EXAM: 04/26/2018 COMPARISON: None INDICATION: Cephalgia post fall DLP: 1150 mGycm, Automated exposure control for dose reduction was used. CONTRAST: None CT of the brain is performed utilizing 3 mm thick sections through the posterior fossa and 3 mm thick sections through the remaining calvarium. Study is performed within 24 hours of arrival to the hosp ital. No abnormal hyperdensity is present to suggest an acute intracranial hemorrhage. No mass lesion is evident. No acute infarcts are evident. Tiny hypodensities are within the right basal ganglion could be periva scular spaces or old lacunar infarcts. Ventricles and sulci are appropriate for the patient age. Paranasal sinuses and mastoid air cells within the [id number] are clear. IMPRESSIONS: 1. No acute posttraumatic intracranial changes.
== END | disposition home or self-care (01) ==
LOC: RADCTMAIN 16:50
PROVIDERS: ATTEND Family Medicine
DX: S09.90XA Unspecified injury of head, initial encounter (principal); Z88.0 Allergy status to penicillin; Z88.2 Allergy status to sulfonamides; Z91.040 Latex allergy status; Z88.8 Allergy status to other drugs, medicaments and biological substances
CPT/HCPCS: 70450

== ENCOUNTER → 2018-06-20 | Outpatient (CLI) | payer BC ==
--- NOTE | 2018-06-20 12:20 | XR ---
EXAMINATION TYPE: XR cervical spine limited DATE OF EXAM: 06/20/2018 CLINICAL HISTORY: pain TECHNIQUE: 3 views of the cervical spine are submitted. COMPARISON: March 2018 FINDINGS: Interval ACDF changes noted at C6-7 with anterior fixation plate in place and intervertebra l body spacer noted. Alignment is anatomic. Stable postoperative changes extending from C3 through C6 . Alignment remains stable. IMPRESSION: Appropriate postoperative alignment.
== END | disposition home or self-care (01) ==
LOC: RADXRMAIN 11:22
DX: M54.2 Cervicalgia (principal); Z98.1 Arthrodesis status
CPT/HCPCS: 72040

== ENCOUNTER → 2018-09-07 | Outpatient (CLI) | payer MEDICARE ==
--- NOTE | 2018-09-08 06:45 | MR ---
EXAMINATION TYPE: MR tspine/lspine wo con DATE OF EXAM: 09/07/2018 COMPARISON: MRI lumbar spine May 28, 2012 HISTORY: Mid back pain and lumbago per order. Mid and low back pain causing weakness in legs since Ju 2017 fall injury. Pain radiates into right buttocks and thigh per patient. TECHNIQUE: Multiplanar, multisequence imaging of the thoracic and lumbar spine are performed without IV contrast. FINDINGS: T-SPINE: FINDINGS: There is artifact from surgical change C3-C7 level noted on sagittal counting sequence. Spi nal cord shows normal course, caliber, and signal as it courses the thoracic spine. Vertebral body h eights are satisfactory. There is slight S-shaped scoliotic curvature in the upper to midthoracic spi ne on coronal images. The disc space heights are fairly well-maintained. Posterior disc herniations a re seen effacing anterior thecal sac at T5-T6 and T6-T7 levels on sagittal images 8 and 9 with larger disc herniation noted T7-T8 level on sagittal image 9. Additional small posterior disc herniation se en T12-L1 level sagittal image 8. A few scattered small hemangiomas are seen largest is at T4 level s agittal image 7. Mild to moderate multilevel anterior spurring is seen. Review of axial images confirms left paracentral disc protrusion T5-T6 level on axial image 6 series 1101. There is right paracentral disc protrusion effacing anterior thecal sac on axial image 2 at T6- T7 level. There is right paracentral disc protrusion effacing anterior thecal sac on axial image 16 series 1001 at T7-T8 level and causing mild asymmetric right-sided neural foraminal narrowing. There is broad-ba sed posterior disc protrusion mildly effacing anterior thecal sac at T12-L1 level on axial image 4. No additional disc herniations identified on axial images. There is 1.2 cm round T2 hyperintense lesi on medially upper pole level left kidney axial image 4 likely reflecting thin-walled simple cyst. IMPRESSION: Some multilevel degenerative changes in the thoracic spine as detailed above. L-SPINE: Sagittal images of the lumbar spine show vertebral body heights and alignment to remain satisfactory. Multilevel disc desiccation is redemonstrated with interval progression. There is redemonstration of advanced disc space narrowing L4-L5 level with mild to moderate anterior spurring. The conus medull leonardo remains normal in position and signal ending inferior L1 level. There is persistent 1.1 cm Tarl ov cyst at S2 level sagittal image 8 redemonstrated. Axial images at the T12-L1 and L1-L2 levels remain within normal limits. Axial images at the L2-L3 level show mild facet degenerative changes and ligamentum flavum hypertroph y. Spinal canal is preserved and bilateral neural foramina are patent. Axial images at the L3-L4 level show moderate facet degenerative changes and ligamentum flavum hypert rophy effacing posterior lateral thecal sac. There is mild/moderate broad-based posterior disc protru gage effacing anterior thecal sac. There is mild to moderate bilateral neural foraminal narrowing now identified. Axial images at the L4-L5 level redemonstrated moderate facet degenerative changes bilaterally. There is moderate broad disc bulge effacing anterior thecal sac. There is moderate to advanced right and m ild to moderate left-sided neural foraminal narrowing redemonstrated. Axial images at the L5-S1 level redemonstrate mild to moderate facet degenerative changes bilaterally . There is broad disc bulge minimally effacing anterior thecal sac on axial image 3. Left-sided neura l foramen is mildly narrowed. Right-sided neural foramen is patent. There is partial visualization of large exophytic T2 hyperintense lesion posteriorly left kidney felt to reflect simple cyst. In the right kidney there is curvilinear low T1 and T2 signal at area of dmitriy or suspicious renal lesion axial image 29 likely reflecting product of treatment neoplasm with residu al scarring, correlate clinically. IMPRESSION: Multilevel degenerative changes in the lumbar spine as detailed above with interval progr ession of degenerative changes noted. Findings most prominent at L4-L5 level.
== END ==
LOC: RADMRIMAIN 19:01
PROVIDERS: ATTEND Family Medicine
DX: M99.73 Connective tissue and disc stenosis of intervertebral foramina of lumbar region (principal); M99.72 Connective tissue and disc stenosis of intervertebral foramina of thoracic region; M51.26 Other intervertebral disc displacement, lumbar region; M51.25 Other intervertebral disc displacement, thoracolumbar region; M47.817 Spondylosis without myelopathy or radiculopathy, lumbosacral region; M47.814 Spondylosis without myelopathy or radiculopathy, thoracic region; M41.84 Other forms of scoliosis, thoracic region
CPT/HCPCS: 72146; 72148

== ENCOUNTER → 2019-01-17 | Outpatient (CLI) | payer MEDICARE | END | disposition home or self-care (01) | LOC: LABWHC1 12:30 | PROVIDERS: ATTEND Urology | DX: C61 Malignant neoplasm of prostate (principal) | CPT/HCPCS: 36415; 84153 ==

== ENCOUNTER → 2019-05-03 | Outpatient (CLI) | payer MEDICARE | END | disposition home or self-care (01) | LOC: LABPAT 13:25 | PROVIDERS: ATTEND Orthopaedic Surgery | DX: Z53.9 Procedure and treatment not carried out, unspecified reason (principal) ==

== ENCOUNTER 2019-05-09 08:54 | Inpatient (IN) | payer MEDICARE ==
[2019-05-03 14:44] LABS: HCT 39.8 % (39.0-53.0); HGB 14.1 gm/dL (13.0-17.5); MCH 29.8 pg (25.0-35.0); MCHC 35.3 g/dL (31.0-37.0); MCV 84.6 fL (80.0-100.0); Mean Platelet Volume 6.5; Platelet Count 245 k/uL (150-450); RBC 4.71 m/uL (4.30-5.90); RDW 12.7 % (11.5-15.5); WBC 5.1 k/uL (3.8-10.6)
[2019-05-03 14:55] LABS: INR 0.9 (<1.2); Partial Thromboplastin Time 24.9 sec (22.0-30.0); Prothrombin Time 10.2 sec (9.0-12.0)
[2019-05-03 14:57] LABS: Appearance,Urine Clear (Clear); Bilirubin,Urine Negative (Negative); Blood,Urine Negative (Negative); Color,Urine Yellow; Glucose,Urine (UA) Negative (Negative); Ketones,Urine Negative (Negative); Leukocyte Esterase,Urine Negative (Negative); Nitrite,Urine Negative (Negative); PH, Urine 5.5 (5.0-8.0); Protein,Urine Negative (Negative); Specific Gravity,Urine 1.018 (1.001-1.035); Urobilinogen,Urine <2.0 mg/dL (<2.0)
[2019-05-03 15:03] LABS: Albumin 4.3 g/dL (3.5-5.0); Calcium 9.4 mg/dL (8.4-10.2); Potassium 3.2 mmol/L (3.5-5.1); Total Bilirubin 0.5 mg/dL (0.2-1.3); Total Protein 7.3 g/dL (6.3-8.2)
[~2019-05-09 08:54] MED LIST: ACETAMINOPHEN TAB 500 MG TAB PO ONE; GABAPENTIN 300 MG CAP PO ONE; LIDOCAINE 1% 20 ML VIAL (10MG/ML) FOR IV START INTRADERMA PRN; MELOXICAM 7.5 MG TAB PO ONE; ONDANSETRON 4 MG/2 ML VIAL IVP ONE; ROPIVACAINE 246.25 MG, EPINEPHrine 0.5 MG, KETOROLAC 30 MG, cloNIDine HCL/PF 80 MCG, WA... MISCELLANE ONE; TRANEXAMIC ACID 1,000 MG in SODIUM CHLORIDE 0.9% 100 ML IVPB ONE; fentaNYL (PF) 50 MCG/ML 2 ML AMP IV PRN
[2019-05-09] MEDS: LACTATED RINGERS 1,000 ML IV SCH (09:42)
[2019-05-09] MEDS ORDERED: DEXAMETHASONE SOD PHOSPHATE 10 MG/ML 1 ML VIAL IV ONE (09:43)
[2019-05-09] MEDS ORDERED: SODIUM CHLORIDE 0.9% 100 ML BAG ONE (10:07)
[2019-05-09] MEDS ORDERED: diphenhydrAMINE 50 MG/ML 1 ML VIAL ONE (10:07)
[2019-05-09] MEDS ORDERED: fentaNYL (PF) 50 MCG/ML 2 ML AMP ONE (10:07)
[2019-05-09] MEDS ORDERED: SODIUM CHLORIDE 0.9% IRRIG 1,000 ML BTL IRRIGATION ONE (10:07)
[2019-05-09] MEDS ORDERED: HEPARIN SODIUM,PORCINE 10,000 UNIT/ML 1 ML VIAL ONE (10:07)
[2019-05-09] MEDS ORDERED: TRANEXAMIC ACID 1,000 MG/10 ML VIAL ONE (10:07)
[2019-05-09] MEDS ORDERED: MIDAZOLAM 2 MG/2 ML VIAL ONE (10:07)
[2019-05-09] MEDS ORDERED: ceFAZolin 3,000 MG in SODIUM CHLORIDE 0.9% IRRIGATIO 3,000 ML IRRIGATION ONE (10:11)
--- NOTE | 2019-05-09 11:36 | P.OP ---
Date of Procedure: 05/09/19 Preoperative Diagnosis: Severe osteoarthritis right hip Postoperative Diagnosis: Severe osteoarthritis right hip Procedure(s) Performed: Right total hip arthroplasty with a direct anterior approach Implants: Allan and nephew Polarstem size 4 standard Allan [employer] Nephew R3, 3 hole acetabular shell, 54 mm [employer]hew reflection 6.5 mm cancellus screw, 20 mm 2 [employer]hew R3, XLPE 20 acetabular liner [employer] Nephew Oxinium femoral head 36 m, +0 All components were press-fit. The articulation is Oxinium on polyethylene. Anesthesia: spinal Surgeon: Uriel Valdovinos Bundle Clerk #1: Susan Allan Estimated Blood Loss (ml): 200 (68 mL returned with Cell Saver) Pathology: other (Femoral head) Condition: stable Disposition: PACU Indications for Procedure: After failure of conservative treatment we discussed the surgical and nonsurgical treatment options at length. Patient wishes to proceed with a total hip arthroplasty with a direct anterior approach. Complications specific to this procedure were discussed at length, including but not limited to infection, leg length discrepancy, dislocation, and nerve injury. Patient is aware of all these complications and informed consent was obtained Operative Findings: The operative findings are consistent with severe osteoarthritis of the right hip Description of Procedure: Patient was seen and evaluated in the preoperative area, consent was reviewed, and the surgical site was marked with a skin marker. Patient was then brought to the operating room and given prophylactic antibiotics intravenously. 1 g of Tranexamic acid was also given. A spinal anesthetic was administered by the anesthesia department. The patient was then placed on the Golf table with the bony prominences well-padded. The hip area was then prepped and draped in usual sterile fashion. A universal timeout was then performed, which confirmed the patient's name, surgical site, ALLERGIES, and procedure being performed. Next the incision site was located at 1 cm distal and 1 cm lateral to the anterior superior iliac spine. The skin and subcutaneous tissues were sharply incised. Incision was carefully dissected down to the fascia overlying the tensor fascia krish muscle. This fascia was then incised in line with the incision. Next, using blunt finger dissection, the tensor fascia krish muscle was dissected off its investing fascia. The muscle was then carefully retracted laterally with a cobra retractor over the lateral neck of the femur. Next, the circumflex vessels were identified and cauterized using the AquaMantis device. The anterior hip capsule was then exposed. The capsule was then opened and an inverted T fashion. Cobra retractors were then placed intracapsularly. The proximal femur was then visualized. The femoral neck was then osteotomized appropriate level above the lesser trochanter. Small amount of traction was placed with the Golf table. A small wedge of bone was then removed from the remaining femoral head. Next, using a corkscrew femoral head was easily removed from the acetabulum. On gross visual inspection, the femoral head had complete loss of articular cartilage in mu ltiple periarticular osteophytes. Attention was then turned to the acetabulum. the acetabulum was exposed and any remaining labrum was excised. Sequential reaming of the acetabulum was performed using fluoroscopic guidance. When the appropriate size was reached, a trial was then placed. The position and fit of the trial was checked with fluoroscopy. The trial was then removed. Then, using fluoroscopic guidance, the final implant was impacted at 20 of anteversion and 40 of abduction, and fully seated in the acetabulum. 2 screws were then placed in the acetabulum. Again fluoroscopy was used to check position of the screws. Next, the liner was then impacted, with a 20 elevated liner located in the anterior superior quadrant. Component locking was confirmed. Attention was then directed to the femur. With the aid of the Golf table, the femur was externally rotated to approximately 130, extended, and abducted under the opposite leg. A side hook was then placed under the proximal femur, and the side hook elevator was used to elevate the proximal femur. Retractors were then placed. A capsular release was performed, as well as a release of the conjoined tendon, which afforded excellent visualization of the proximal femur. Next, a box osteotome was used to lateralize the proximal femur. A aging box hand was then used to locate the femoral canal. Sequential broaching was then performed with appropriate size which afforded excellent fixation in the proximal femur. A trial was then placed with appropriate head and neck, and the hip was gently reduced with the aid of the Golf table. Fluoroscopy was then used to check position of the components, as well as to ensure equal leg lengths. The hip was then gently dislocated and the trials were then removed. Final implants were then impacted and the hip was again reduced. Final fluoroscopic x-rays confirmed that the components were in anatomic position, as well as equal leg lengths. The hip was also taken through range of motion, and found to be stable. The hip was then copiously irrigated with antibiotic solution with pulsatile lavage. The hip was then irrigated with Irrisept solution. The soft tissues were then injected with a ropivacaine solution, which consisted of 246.25 mg of ropivacaine, 0.5 mg of epinephrine, 30 mg of Toradol, 80 g of clonidine, and 48.45 mL of sterile water, for a total of 100 mL of fluid injected. A second dose of 1 g of Tranexamic acid was also given. the fascia was then closed with 2-0 strata fix suture. The subcutaneous tissue was closed with 3-0 Vicryl. The subcuticular tissue was closed with 3-0 strata fix suture. The skin was then closed with Dermabond glue and a sterile silver dressing. The patient was then transferred to the recovery room in stable co ndition. The nursing home assistant BOBBY Carrasquillo was required due to the complexity of surgery, and the need for skilled surgical services asst for positioning, draping, exposure, retraction, and closure of the wound.
[2019-05-09] MEDS ORDERED: ONDANSETRON 4 MG/2 ML VIAL IVP PRN (11:48)
[2019-05-09] MEDS ORDERED: DIAZEPAM 5 MG TAB PO PRN (11:48)
[2019-05-09] MEDS ORDERED: HYDROmorphone 0.5 MG/0.5 ML SYRINGE IVP PRN ×3 (11:48)
[2019-05-09] MEDS ORDERED: hydrOXYzine PAMOATE 25 MG CAP PO PRN (11:48)
[2019-05-09] MEDS ORDERED: MAGNESIUM HYDROXIDE 2,400 MG/10 ML CUP PO PRN (11:48)
[2019-05-09] MEDS ORDERED: NALOXONE 0.4 MG/ML 1 ML VIAL IV PRN (11:48)
[2019-05-09] MEDS ORDERED: HYDROcodone/APAP 5-325MG 1 EACH TAB PO PRN ×2 (11:48)
--- NOTE | 2019-05-09 12:11 | XR ---
EXAMINATION TYPE: XR Hip Limited RT DATE OF EXAM: 05/09/2019 CLINICAL HISTORY: Right hip pain and osteoarthritis. TECHNIQUE: Single AP portable view of right hip is obtained immediately postoperatively. COMPARISON: None. FINDINGS: Metallic hardware from right hip arthroplasty is seen and appears satisfactory in alignment and position. There is evidence of recent surgery with subcutaneous gas noted laterally. IMPRESSION: Metallic hardware from right hip arthroplasty is satisfactory in position.
--- NOTE | 2019-05-09 12:37 | XR ---
EXAMINATION TYPE: XR Hip Limited RT, FL guidance operating room DATE OF EXAM: 05/09/2019 CLINICAL HISTORY: Fluoroscopic guidance during right hip arthroplasty. TECHNIQUE: Fluoroscopy. COMPARISON: None. FINDINGS: Fluoroscopic guidance was provided during procedure performed by Dr. Valdovinos. A total of 35 seconds of fluoroscopic time was utilized during the procedure and 2 spot images was acquired dur ing right hip arthroplasty. IMPRESSION: As Above.
[2019-05-09 16:40] VITALS: BMI 28.3
[2019-05-09] MEDS ORDERED: MELATONIN 3 MG TABLET PO PRN (17:33)
--- NOTE | 2019-05-09 17:42 | P.CONS ---
History of Present Illness - Reason for Consult Consult date: 05/09/19 HTN Requesting physician: Uriel Valdovinos - Chief Complaint right hip pain - History of Present Illness Patient is a 63-year-old male past medical history of hypertension, celiac disease, prostate cancer status post resection with radiation, hiatal hernia, and TIA 2 who presented for elective right total hip arthroplasty. He underwent direct anterior approach right total hip on 05/09 without any immediate postoperative complications. We're consulted for medical management due to high blood pressure. Patient seen and examined at bedside. He is feeling wonderful after surgery. He is having no pain. He said ambulating was much easier when he got to the chair. He denies any chest pain, shortness breath, nausea, or vomiting. He does struggle with constipation at home. He has not had any recent cough, cold, fever, or flu. No other complaints currently. He sees Dr. Delgadillo is his PCP and last saw him in the end of March. He states that he has a walker and crutches at home but typically walks without assistive devices. Review of Systems Pertinent positives and negatives as discussed in HPI, a complete review of systems was performed and all other systems are negative. Past Medical History Past Medical History: Cancer, GERD/Reflux, GI Bleed, Hypertension, Osteoarthritis (OA) Additional Past Medical History / Comment(s): PROSTATE CANCER, RIGHT BUNDLE BLOCK, HEART MURMUR, (2) TIA'S, CELIAC DISEASE-FOLLOWS GLUTEN FREE DIET,HX OF SHINGLES X3, CYSTS ON KIDNEYS, HIATAL HERNIA. History of Any Multi-Drug Resistant Organisms: None Reported Past Surgical History: Adenoidectomy, Heart Catheterization, Hernia Repair, Orthopedic Surgery, Prostate Surgery, Tonsillectomy Additional Past Surgical History / Comment(s): CERVICAL SPINAL FUSION X2-BONE TAKEN FROM HIP FOR CERVICAL FUSION WHICH HERNIATED X2 AT SITE., PROSTATECTOMY, KENYON ROTATOR CUFF REPAIR, ING HERNIA. Past Anesthesia/Blood Transfusion Reactions: No Reported Reaction, Motion Sickness Past Psychological History: No Psychological Hx Reported Smoking Status: Never smoker Past Alcohol Use History: None Reported Past Drug Use History: None Reported Additional History: Lives with his . Works as a pre kindergarten teacher. No assistive devices. - Past Family History Father Family Medical History: Cancer, Hypertension, Prostate Disorder Additional Family Medical History / Comment(s): prostate cancer at age 87 Mother Family Medical History: Cancer Additional Family Medical History / Comment(s): colon ca, Medications and Allergies Home Medications Medication Instructions Recorded Confirmed Type Melatonin 3 mg PO HS PRN 04/14/16 05/09/19 History Multivitamin [Men's Multi-Vitamin] 1 tab PO HS 04/14/16 05/09/19 History Vitamin B Complex 1 cap PO HS 04/14/16 05/09/19 History cloNIDine HCL [Catapres] 0.1 mg PO BID 04/14/16 05/09/19 History Lisinopril [Zestril] 40 mg PO DAILY #60 tab 04/16/16 05/09/19 Rx Chlorthalidone 25 mg PO DAILY 04/25/17 05/09/19 History Tamsulosin [Flomax] 0.4 mg PO DAILY 04/25/17 05/09/19 History Allergies Allergy/AdvReac Type Severity Reaction Status Date / Time gluten Allergy Abdominal Verified 05/09/19 14:53 Pain hydrocodone bitartrate Allergy Abdominal Verified 05/09/19 14:53 [From Vicodin] Pain nitrofurantoin Allergy Unknown Verified 05/09/19 14:53 [From Macrobid] nitrofurantoin Allergy Unknown Verified 05/09/19 14:53 macrocrystalline [From Macrobid] Penicillins Allergy Rash/Hives Verified 05/09/19 14:53 Sulfa (Sulfonamide Allergy Rash/Hives Verified 05/09/19 14:53 Antibiotics) sulfacetamide sodium Allergy Rash/Hives Verified 05/09/19 14:53 [From Sulfamide] Physical Exam Osteopathic Statement: *. No significant issues noted on an osteopathic structural exam other than those noted in the History and Physical/Consult. Vitals: Vital Signs Temp Pulse Pulse Resp BP Pulse Ox 05/09/19 15:11 75 16 05/09/19 14:30 75 16 100/67 96 05/09/19 14:00 78 16 107/58 96 05/09/19 13:46 76 16 105/58 96 05/09/19 13:30 70 16 103/56 96 05/09/19 13:18 70 16 105/57 96 05/09/19 13:06 58 L 16 97/55 96 05/09/19 12:48 75 16 105/57 96 09/10/19 12:33 70 16 99/57 96 05/09/19 12:16 71 16 105/61 96 05/09/19 12:03 59 L 16 107/65 96 05/09/19 11:45 96.8 F L 74 16 105/68 96 05/09/19 09:23 97.8 F 72 16 132/91 96 Intake and Output 05/09/19 05/09/19 05/09/19 06:59 14:59 22:59 Intake Total 751 Output Total 200 Balance 551 Intake: IV 751 Output: Estimated Blood Loss 200 General: non toxic, no distress, appears at stated age, normal weight Derm: no unusual rashes/lesions no unusual ecchymoses, warm, dry Head: atraumatic, normocephalic, symmetric Eyes: EOMI, no lid lag, anicteric sclera, pupils equal round reactive to light ENT: Nose and ears atraumatic, no thrush, no pharyngeal erythema Neck: No thyromegaly, no cervical lymphadenopathy, trachea midline, supple Mouth: no lip lesion, mucus membranes moist Cardiovascular: S1S2 reg, no murmur, positive posterior tibial pulse bilateral, no edema, capillary refill less than 2 seconds Lungs: CTA bilateral, no rhonchi, no rales , no accessory muscle use Abdominal: soft, nontender to palpation, no guarding, no appreciable organomegaly, normal bowel sounds Ext: no gross muscle atrophy, muscle strength 5 out of 5 in all upper extremities grossly, no contractures, Neuro: CN II-XI grossly intact, light touch intact all 4 extremities, finger to nose within normal limits, Psych: Alert, oriented, appropriate affect Results CBC & Chem 7: 05/03/19 14:10 05/03/19 14:10 Assessment and Plan Assessment: Patient is a 63 yo CM here after direct anterior total hip Right. Post-op pain - Start Ultram, stop norco at patients request- does not tolerate medication. Dilaudid HTN, controlled - resume home medications clonidine, lisinopril, chlorthalidone - follow BP Celiac disease - maintain gluten free diet BPH - flomax Thank you for allowing us to participate in the care of this patient. Do not hesitate to contact us with questions. Someone can be reached from the [facility] hospitalist group at all hours of the day at [phone].
[2019-05-09] MEDS ORDERED: POTASSIUM CHLORIDE ER 20 MEQ TAB.ER PO STA (20:56)
[2019-05-09] MEDS ORDERED: NON-FORMULARY DRUG (Vitamin B Complex [Vitamin B Complex] 1 CAP) PO SCH (21:00)
[2019-05-09] MEDS: ASPIRIN 325 MG TAB PO SCH (21:04)
[2019-05-09] MEDS: BACLOFEN 10 MG TAB PO PRN (21:05)
[2019-05-09] MEDS: SENNOSIDES-DOCUSATE SODIUM 1 EACH TAB PO SCH (21:05)
[2019-05-09] MEDS: MULTIVITAMINS, THERA 1 EACH TAB PO SCH (21:05)
[2019-05-09] MEDS: cloNIDine HCL 0.1 MG TAB PO SCH (21:05)
[2019-05-10] MEDS: SODIUM CHLORIDE 0.9% 1,000 ML IV SCH ×3 (01:42→14:34)
[2019-05-10] MEDS: traMADol 50 MG TAB PO PRN ×3 (01:42→13:20)
[2019-05-10 07:12] LABS: Basophils % (A) 0 %; Eosinophils # (A) 0.1 k/uL (0-0.7); Eosinophils % (A) 1 %; HCT 35.6 % (39.0-53.0); Lymphocytes # (A) 0.5 k/uL (1.0-4.8); Lymphocytes % (A) 6 %; MCH 29.2 pg (25.0-35.0); MCHC 33.8 g/dL (31.0-37.0); MCV 86.6 fL (80.0-100.0); Mean Platelet Volume 6.7; Monocytes # (A) 0.7 k/uL (0-1.0); Monocytes % (A) 7 %; Neutrophils # (A) 7.9 k/uL (1.3-7.7); Neutrophils % (A) 84 %; Platelet Count 230 k/uL (150-450); RDW 14.7 % (11.5-15.5); WBC 9.3 k/uL (3.8-10.6)
[2019-05-10] MEDS: BACLOFEN 10 MG TAB PO PRN ×2 (07:22→20:30)
[2019-05-10] MEDS ORDERED: MELOXICAM 7.5 MG TAB PO SCH (09:00)
[2019-05-10] MEDS ORDERED: KETOROLAC 30 MG/ML 1 ML VIAL IVP PRN (09:10)
[2019-05-10] MEDS ORDERED: traMADol 50 MG TAB PO PRN (09:12)
[2019-05-10] MEDS: ASPIRIN 325 MG TAB PO SCH ×2 (09:17→20:30)
[2019-05-10] MEDS: CHLORTHALIDONE 25 MG TAB PO SCH (09:17)
[2019-05-10] MEDS: cloNIDine HCL 0.1 MG TAB PO SCH ×2 (09:17→20:30)
[2019-05-10] MEDS: LISINOPRIL 20 MG TAB PO SCH (09:17)
[2019-05-10] MEDS: TAMSULOSIN 0.4 MG CAP.ER.24H PO SCH (09:18)
--- NOTE | 2019-05-10 09:20 | P.PN ---
Subjective Progress Note Date: 05/10/19 This is a 63-year-old male who is status post right total hip arthroplasty. This is postoperative day #1 and patient is seen and evaluated at bedside with Dr. Uriel Valdovinos. Patient complains of spasms in the right lower extremity today. Patient states that he normally has spasms in his right foot from history of cervical fusion and takes baclofen for this. Patient states that the spasms he is experiencing today are worse than his normal. Patient states that he has been up walking. Patient denies any fever/chills, numbness, weakness, tingling, abdominal pain, shortness of breath or chest pain. Objective - Vital Signs Vital signs: Vital Signs Temp 98.1 F 05/10/19 07:00 Pulse 94 05/10/19 07:00 Resp 16 05/10/19 07:00 BP 114/75 05/10/19 07:00 Pulse Ox 97 05/10/19 07:00 Intake & Output 05/09/19 05/10/19 05/10/19 18:59 06:59 18:59 Intake Total 751 Output Total 200 Balance 551 Intake: IV 751 Output: Estimated Blood Loss 200 Other: Voiding Method Toilet Toilet Urinal # Voids 0 - Exam Vital signs are stable. Patient is in no acute distress and is alert and oriented 3. Calf is soft and nontender to palpation. Dressing is clean, dry, and intact. Patient has full foot and ankle motion without pain or difficulty. Neurovascular status and circulatory status are intact. - Labs CBC & Chem 7: 05/10/19 06:21 05/03/19 14:10 Labs: Abnormal Lab Results - Last 24 Hours (Table) 05/10/19 Range/Units 06:21 RBC 4.10 L (4.30-5.90) m/uL Hgb 12.0 L (13.0-17.5) gm/dL Hct 35.6 L (39.0-53.0) % Neutrophils # 7.9 H (1.3-7.7) k/uL Lymphocytes # 0.5 L (1.0-4.8) k/uL Assessment and Plan (1) Osteoarthritis of right hip Current Visit: Yes Status: Acute Code(s): M16.11 - UNILATERAL PRIMARY OSTEOARTHRITIS, RIGHT HIP SNOMED Code(s): 477894058333978 (2) Status post total hip replacement, right Current Visit: Yes Status: Acute Code(s): Z96.641 - PRESENCE OF RIGHT ARTIFICIAL HIP JOINT SNOMED Code(s): 137393047807 Plan: Continue routine postop care and pain control. Continue anticoagulation with aspirin. Valium and baclofen for spasms. Toradol is added for pain control. Weightbearing as tolerated with a walker Leave dressing in place for 10 days. Appreciate input from medicine. Possible discharge home with homecare today or tomorrow.
[2019-05-10] MEDS: LACTATED RINGERS 1,000 ML IV SCH ×2 (09:28→22:16)
[2019-05-10 14:32] LABS: African American GFR (CKD) >90 (>60 ml/min/1.73 sqM); Anion Gap 9 mmol/L; Blood Urea Nitrogen 30 mg/dL (9-20); Calcium 8.8 mg/dL (8.4-10.2); Carbon Dioxide 25 mmol/L (22-30); Chloride 104 mmol/L (98-107); Glucose 113 mg/dL (74-99); Magnesium 1.7 mg/dL (1.6-2.3); Potassium 3.9 mmol/L (3.5-5.1); Sodium 138 mmol/L (137-145)
--- NOTE | 2019-05-10 16:16 | P.PN ---
Subjective Progress Note Date: 05/10/19 Principal diagnosis: hip pain Patient is a 63-year-old male past medical history of hypertension, celiac disease, prostate cancer status post resection with radiation, hiatal hernia, and TIA 2 who presented for elective right total hip arthroplasty. He underwent direct anterior approach right total hip on 05/09 without any immediate postoperative complications. We're consulted for medical management due to high blood pressure. The morning after surgery he was having significant issues with spasticity in his right lower extremity. Patient seen and examined at bedside. Complains of spasticity in his right lower extremity pain. No chest pain, shortness breath, nausea, vomiting, or diarrhea. We discussed at length that he may have increased acid reflux symp toms due to the need for aspirin to prevent DVTs in the postoperative period. I offered to prescribe an H2 luther or PPI however he declined. I did inform him not to stop taking the aspirin as it is meant to decrease his risk of blood clots. He states he will use [id number] Zantac or Pepcid if needed. Objective - Vital Signs Vital signs: Vital Signs Temp 98.4 F 05/10/19 14:41 Pulse 72 05/10/19 14:41 Resp 16 05/10/19 14:41 BP 112/71 05/10/19 14:41 Pulse Ox 95 05/10/19 14:41 Intake & Output 05/09/19 05/10/19 05/10/19 18:59 06:59 18:59 Intake Total 751 360 Output Total 200 Balance 551 360 Intake: IV 751 Oral 360 Output: Estimated Blood Loss 200 Other: Voiding Method Toilet Toilet Urinal # Voids 0 2 - Exam General: non toxic, mild distress due to pain, appears at stated age Derm: warm, dry Head: atraumatic, normocephalic, symmetric Eyes: EOMI, no lid lag, anicteric sclera Mouth: no lip lesion, mucus membranes moist Cardiovascular: S1S2 reg, no murmur, positive posterior tibial pulse bilateral, Lungs: decreased bs bilateral, no rhonchi, no rales , no accessory muscle use Abdominal: soft, nontender to palpation, no guarding, no appreciable organomegaly Ext: no gross muscle atrophy, no edema, no contractures Neuro: CN II-XI grossly intact, no focal neuro deficits Psych: Alert, oriented, appropriate affect - Labs CBC & Chem 7: 05/10/19 06:21 05/10/19 06:21 Labs: Abnormal Lab Results - Last 24 Hours (Table) 05/10/19 05/10/19 Range/Units 06:21 06:21 RBC 4.10 L (4.30-5.90) m/uL Hgb 12.0 L (13.0-17.5) gm/dL Hct 35.6 L (39.0-53.0) % Neutrophils # 7.9 H (1.3-7.7) k/uL Lymphocytes # 0.5 L (1.0-4.8) k/uL BUN 30 H (9-20) mg/dL Glucose 113 H (74-99) mg/dL Assessment and Plan Assessment: Patient is a 63 yo CM here after direct anterior total hip Right. Post-op pain - Start Ultram, - given valium by ortho Acute blood loss anemia - will self correct - follow CBC - No need for ferrous sulfate GERD - Patient does not want PPI/HE luther HTN, controlled - resume home medications clonidine, lisinopril, chlorthalidone - follow BP Celiac disease - maintain gluten free diet BPH - flomax Thank you for allowing us to participate in the care of this patient. Do not hesitate to contact us with questions. Someone can be reached from the [facility] hospitalist group at all hours of the day at [phone].
[2019-05-10] MEDS: DIAZEPAM 5 MG TAB PO PRN (17:08)
[2019-05-10] MEDS: MULTIVITAMINS, THERA 1 EACH TAB PO SCH (20:30)
[2019-05-10] MEDS: SENNOSIDES-DOCUSATE SODIUM 1 EACH TAB PO SCH (20:30)
[2019-05-11] MEDS: DIAZEPAM 5 MG TAB PO PRN (01:30)
[2019-05-11] MEDS: traMADol 50 MG TAB PO PRN ×3 (02:11→13:03)
[2019-05-11 06:59] VITALS: TEMP 98.4
[2019-05-11 07:31] VITALS: BP 117/79; PULSE 96; RESP 16
[2019-05-11] MEDS: TAMSULOSIN 0.4 MG CAP.ER.24H PO SCH (07:32)
[2019-05-11] MEDS: LISINOPRIL 20 MG TAB PO SCH (07:32)
[2019-05-11] MEDS: CHLORTHALIDONE 25 MG TAB PO SCH (07:33)
[2019-05-11] MEDS: ASPIRIN 325 MG TAB PO SCH (07:34)
[2019-05-11] MEDS: SODIUM CHLORIDE 0.9% 1,000 ML IV SCH (07:35)
[2019-05-11] MEDS: BACLOFEN 10 MG TAB PO PRN (07:35)
[2019-05-11] MEDS: cloNIDine HCL 0.1 MG TAB PO SCH (07:35)
--- NOTE | 2019-05-11 08:38 | P.DS ---
Providers Date of admission: 05/09/19 08:54 Expected date of discharge: 05/11/19 Attending physician: Uriel Valdovinos Consults: 05/09/19 11:48 Consult Physician Stat Consulting Provider: Tessie Physician Consult Reason/Comments: medical management Do you want consulting provider notified?: Yes Primary care physician: Andres Quinn - Discharge Diagnosis(es) (1) Osteoarthritis of right hip Current Visit: Yes Status: Acute (2) Status post total hip replacement, right Current Visit: Yes Status: Acute Hospital Course: This is a 63-year-old male with known history of degenerative arthritis of the right hip. The patient presents for evaluation. After discussion and consideration patient elects to proceed with total hip arthroplasty. The patient is seen preoperatively by Dr. Valdovinos and medically cleared for surgery by their primary care physician. Patient is admitted to [facility] on 05/09/2019 for total hip arthroplasty. The procedures performed without complication or sequelae. The patient is doing well postoperatively. Labs and vital signs are stable on day of discharge. On day of discharge patient's hip incision is healing well. There is minimal erythema. There is no drainage noted at this time. There is minimal soft tissue swelling to the hip and thigh. Patient has full foot and ankle motion without difficulty or pain. Calf is soft and nontender to palpation. Neurovascular status to the right lower extremity is intact. Patient is discharged home in good condition. Opioid start talking form is reviewed and signed at patient bedside. Please see med rec for accurate list of home medications. Plan - Discharge Summary Discharge Rx Participant: Yes New Discharge Prescriptions: New Aspirin 325 mg PO BID #60 tab Ketorolac [Toradol] 10 mg PO Q6HR #12 tab traMADol HCl [Ultram] 1 - 2 tab PO Q6H PRN #56 tab PRN Reason: Pain Diazepam [Valium] 5 mg PO TID PRN #21 tab PRN Reason: Muscle Spasm Sennosides [Senokot] 1 tab PO BID #60 tablet No Action Multivitamin [Men's Multi-Vitamin] 1 tab PO HS cloNIDine HCL [Catapres] 0.1 mg PO BID Vitamin B Complex 1 cap PO HS Melatonin 3 mg PO HS PRN PRN Reason: Insomnia Lisinopril [Zestril] 40 mg PO DAILY #60 tab Tamsulosin [Flomax] 0.4 mg PO DAILY Chlorthalidone 25 mg PO DAILY Discharge Medication List Melatonin 3 mg PO HS PRN 04/14/16 [History] Multivitamin [Men's Multi-Vitamin] 1 tab PO HS 04/14/16 [History] Vitamin B Complex 1 cap PO HS 04/14/16 [History] cloNIDine HCL [Catapres] 0.1 mg PO BID 04/14/16 [History] Lisinopril [Zestril] 40 mg PO DAILY #60 tab 04/16/16 [Rx] Chlorthalidone 25 mg PO DAILY 04/25/17 [History] Tamsulosin [Flomax] 0.4 mg PO DAILY 04/25/17 [History] Aspirin 325 mg PO BID #60 tab 05/11/19 [Rx] Diazepam [Valium] 5 mg PO TID PRN #21 tab 05/11/19 [Rx] Ketorolac [Toradol] 10 mg PO Q6HR #12 tab 05/11/19 [Rx] Sennosides [Senokot] 1 tab PO BID #60 tablet 05/11/19 [Rx] traMADol HCl [Ultram] 1 - 2 tab PO Q6H PRN #56 tab 05/11/19 [Rx] Follow up Appointment(s)/Referral(s): Andres Quinn DO [Primary Care Provider] - 1 Week Uriel Valdovinos DO [Doctor of Osteopathic Medicine] - 05/22/19 1:50 pm Activity/Diet/Wound Care/Special Instructions: Weightbearing as tolerated with walker. Leave dressing intact. Dressing may be removed by home care nurse or by patient in 10 days. May shower with dressing on. Recommend use of compression stockings daily for at least 2 weeks during the day to help prevent swelling and blood clots. May remove at night before sleeping. Please follow-up with [facility] in 2 weeks and call with any ques tions or concerns, . Discharge Disposition: HOME WITH HOME HEALTH SERVICES
--- NOTE | 2019-05-11 08:41 | P.PN ---
Subjective Progress Note Date: 05/11/19 This is a 63-year-old male who is status post right total hip arthroplasty. This is postoperative day #2 and patient is seen and evaluated at bedside. Patient states that his muscle spasms have improved and his pain is well- controlled. Patient denies any fever/chills, numbness, weakness, tingling, abdominal pain, shortness of breath or chest pain. Objective - Vital Signs Vital signs: Vital Signs Temp 98.4 F 05/11/19 07:00 Pulse 96 05/11/19 07:00 Resp 16 05/11/19 08:00 BP 117/79 05/11/19 07:00 Pulse Ox 93 L 05/11/19 07:00 Intake & Output 05/10/19 05/11/19 05/11/19 18:59 06:59 18:59 Intake Total 360 480 Balance 360 480 Intake: Oral 360 480 Other: Voiding Method Toilet Toilet Urinal Urinal # Voids 2 2 - Exam Vital signs are stable. Patient is in no acute distress and is alert and oriented 3. Calf is soft and nontender to palpation. Dressing is clean, dry, and intact. Patient has full foot and ankle motion without pain or difficulty. Neurovascular status and circulatory status are intact. - Labs CBC & Chem 7: 05/10/19 06:21 05/10/19 06:21 Labs: Abnormal Lab Results - Last 24 Hours (Table) 05/10/19 Range/Units 06:21 BUN 30 H (9-20) mg/dL Glucose 113 H (74-99) mg/dL Assessment and Plan (1) Osteoarthritis of right hip Current Visit: Yes Status: Acute Code(s): M16.11 - UNILATERAL PRIMARY OSTEOARTHRITIS, RIGHT HIP SNOMED Code(s): 968411713092675 (2) Status post total hip replacement, right Current Visit: Yes Status: Acute Code(s): Z96.641 - PRESENCE OF RIGHT ARTIFICIAL HIP JOINT SNOMED Code(s): 357625936411 Plan: Continue routine postop care and pain control. Continue anticoagulation with aspirin. Valium and baclofen for spasms. Weightbearing as tolerated with a walker. Leave dressing in place for 10 days. Appreciate input from medicine. Anticipate discharge home today.
== END 2019-05-11 13:22 | disposition home health service (06) | DRG 470 ==
LOC: 2ORMAIN 08:54 → 4SSUR 11:45 → EDSTATUS 13:45
PROVIDERS: ADMIT Orthopaedic Surgery; ATTEND Orthopaedic Surgery
PROC: 30233N0 Transfusion of Autologous Red Blood Cells into Peripheral Vein, Percutaneous Approach (ICD-10-PCS; 2019-05-09)
PROC: 0SR906A Replacement of Right Hip Joint with Oxidized Zirconium on Polyethylene Synthetic Substitute, Uncemented, Open Approach (ICD-10-PCS; principal; 2019-05-09 10:45)
DX: M16.11 Unilateral primary osteoarthritis, right hip (principal); D62 Acute posthemorrhagic anemia; N28.1 Cyst of kidney, acquired; I10 Essential (primary) hypertension; K21.9 Gastro-esophageal reflux disease without esophagitis; K90.0 Celiac disease; N40.0 Benign prostatic hyperplasia without lower urinary tract symptoms; K44.9 Diaphragmatic hernia without obstruction or gangrene; M62.838 Other muscle spasm; R01.1 Cardiac murmur, unspecified; Z79.899 Other long term (current) drug therapy; Z98.1 Arthrodesis status; Z86.73 Personal history of transient ischemic attack (TIA), and cerebral infarction without residual deficits; Z86.19 Personal history of other infectious and parasitic diseases; Z85.46 Personal history of malignant neoplasm of prostate; Z92.3 Personal history of irradiation; Z85.51 Personal history of malignant neoplasm of bladder; Z87.442 Personal history of urinary calculi; Z88.1 Allergy status to other antibiotic agents; Z88.5 Allergy status to narcotic agent; Z88.0 Allergy status to penicillin; Z88.2 Allergy status to sulfonamides; Z90.79 Acquired absence of other genital organ(s); Z80.0 Family history of malignant neoplasm of digestive organs; Z80.42 Family history of malignant neoplasm of prostate; Z82.49 Family history of ischemic heart disease and other diseases of the circulatory system
CPT/HCPCS: 73501; 80048; 80053; 81003; 83735; 85025; 85027; 85610; 85730; 86850; 86891; 86900; 86901; 87070; 88305; 88311

== ENCOUNTER 2019-06-07 12:06 | Emergency (ER) | payer MEDICARE ==
[2019-06-07 12:21] VITALS: RESP 16; TEMP 97.4
--- NOTE | 2019-06-07 13:01 | ED ---
ENT HPI - General Chief complaint: ENT Stated complaint: nose bleed Time Seen by Provider: 06/07/19 12:28 Source: patient, RN notes reviewed, old records reviewed Mode of arrival: ambulatory Limitations: no limitations - History of Present Illness Initial comments: This is a 64-year-old male the ER for evaluation patient does say for evaluation regards to epistaxis. Patient presents today for evaluation regards to bleeding from there. History history of bleeding from her a chronic basis. Patient states yesterday has been going on for 4 hours with no improvement. Upon arrival to ER patient states his breathing has slowed down considerably he did and was applying pressure with Kleenex. Patient is not on any blood thinners, is on of high blood pressure. No trauma MD complaint: epistaxis -: hour(s) (4) Location: nose (Left Nare) Severity: mild Severity scale (1-10): 3 Worsens with: none Context-Epistaxis: history of similar Context- Ear: other (none) Associated Symptoms: other (none) - Related Data Home Medications Medication Instructions Recorded Confirmed cloNIDine HCL [Catapres] 0.1 mg PO BID PRN 04/14/16 06/07/19 Chlorthalidone 25 mg PO DAILY 04/25/17 06/07/19 Previous Rx's Medication Instructions Recorded Lisinopril [Zestril] 40 mg PO DAILY #60 tab 04/16/16 Allergies Allergy/AdvReac Type Severity Reaction Status Date / Time gluten Allergy Abdominal Verified 06/07/19 12:53 Pain hydrocodone bitartrate Allergy Abdominal Verified 06/07/19 12:53 [From Vicodin] Pain nitrofurantoin Allergy Unknown Verified 06/07/19 12:53 [From Macrobid] nitrofurantoin Allergy Unknown Verified 06/07/19 12:53 macrocrystalline [From Macrobid] Penicillins Allergy Rash/Hives Verified 06/07/19 12:53 Sulfa (Sulfonamide Allergy Rash/Hives Verified 06/07/19 12:53 Antibiotics) sulfacetamide sodium Allergy Rash/Hives Verified 06/07/19 12:53 [From Sulfamide] Review of Systems ROS Statement: Those systems with pertinent positive or pertinent negative responses have been documented in the HPI. ROS Other: All systems not noted in ROS Statement are negative. Past Medical History Past Medical History: Cancer, GERD/Reflux, GI Bleed, Hypertension, Osteoarthritis (OA) Additional Past Medical History / Comment(s): PROSTATE CANCER, RIGHT BUNDLE BLOCK, HEART MURMUR, (2) TIA'S, CELIAC DISEASE-FOLLOWS GLUTEN FREE DIET,HX OF SHINGLES X3, CYSTS ON KIDNEYS, HIATAL HERNIA. History of Any Multi-Drug Resistant Organisms: None Reported Past Surgical History: Adenoidectomy, Heart Catheterization, Hernia Repair, Orthopedic Surgery, Prostate Surgery, Tonsillectomy Additional Past Surgical History / Comment(s): CERVICAL SPINAL FUSION X2-BONE TAKEN FROM HIP FOR CERVICAL FUSION WHICH HERNIATED X2 AT SITE., PROSTATECTOMY, KENYON ROTATOR CUFF REPAIR, ING HERNIA. Past Anesthesia/Blood Transfusion Reactions: No Reported Reaction, Motion Sickness Past Psychological History: No Psychological Hx Reported Smoking Status: Never smoker Past Alcohol Use History: None Reported Past Drug Use History: None Reported - Past Family History Father Family Medical History: Cancer, Hypertension, Prostate Disorder Additional Family Medical History / Comment(s): prostate cancer at age 87 Mother Family Medical History: Cancer Additional Family Medical History / Comment(s): colon ca, General Exam Limitations: no limitations General appearance: alert, in no apparent distress Head exam: Present: atraumatic, normocephalic, normal inspection Eye exam: Present: normal appearance, EOMI. Absent: scleral icterus, conjunctival injection, periorbital swelling ENT exam: Present: normal exam, mucous membranes moist, other (Left nare Does show polyps, hyphema with no obvious current bleeding) Neck exam: Present: normal inspection. Absent: tenderness, meningismus, lymphadenopathy Respiratory exam: Present: normal lung sounds bilaterally. Absent: respiratory distress, wheezes, rales, rhonchi, stridor Cardiovascular Exam: Present: regular rate, normal rhythm, normal heart sounds. Absent: systolic murmur, diastolic murmur, rubs, gallop, clicks GI/Abdominal exam: Present: soft, normal bowel sounds. Absent: distended, tenderness, guarding, rebound, rigid Extremities exam: Present: normal inspection, full ROM, normal capillary refill. Absent: tenderness, pedal edema, joint swelling, calf tenderness Back exam: Present: normal inspection Neurological exam: Present: alert, oriented X3, CN II-XII intact Psychiatric exam: Present: normal affect, normal mood Skin exam: Present: warm, dry, intact, normal color. Absent: rash Course Vital Signs 10/09/19 12:19 Temperature 97.4 F L Pulse Rate 79 Respiratory 16 Rate Blood Pressure 119/82 O2 Sat by Pulse 98 Oximetry - Reevaluation(s) Reevaluation #1: 06/07/19 13:50 Medical records reviewed Reevaluation #2: 06/07/19 13:50 Bleeding remained stopped here in the ER Medical Decision Making - Medical Decision Making 64 male the ER for evaluation of epistaxis. Bleeding is ceased without intervention, patient given nasal clamp after for discharge. Encouraged to take antihistamine for ALLERGIES. Disposition Clinical Impression: Left-sided epistaxis Disposition: HOME SELF-CARE Condition: Good Instructions (If sedation given, give patient instructions): Nosebleed (ED) Is patient prescribed a controlled substance at d/c from ED?: No Referrals: Andres Quinn DO [Primary Care Provider] - 1-2 days
[2019-06-07] MEDS ORDERED: OXYMETAZOLINE 0.05% NASL SPRAY 1 SPRAY BOTTLE NASAL STA (13:08)
[2019-06-07 14:19] VITALS: BP 147/85; PULSE 81
== END 2019-06-07 14:18 | disposition home or self-care (01) ==
LOC: EC 12:06
DX: R04.0 Epistaxis (principal); I10 Essential (primary) hypertension; K21.9 Gastro-esophageal reflux disease without esophagitis; M19.90 Unspecified osteoarthritis, unspecified site; Z79.899 Other long term (current) drug therapy; Z88.8 Allergy status to other drugs, medicaments and biological substances; Z88.0 Allergy status to penicillin; Z88.2 Allergy status to sulfonamides; Z88.1 Allergy status to other antibiotic agents; Z88.5 Allergy status to narcotic agent; Z87.19 Personal history of other diseases of the digestive system; Z85.46 Personal history of malignant neoplasm of prostate; Z95.5 Presence of coronary angioplasty implant and graft; Z98.890 Other specified postprocedural states; Z90.89 Acquired absence of other organs
CPT/HCPCS: 30901; 99283

== ENCOUNTER → 2019-10-25 | Outpatient (CLI) | payer MEDICARE ==
--- NOTE | 2019-10-26 08:44 | US ---
EXAMINATION TYPE: US kidneys/renal and bladder DATE OF EXAM: 10/25/2019 COMPARISON: CT CLINICAL HISTORY: N20.0 CALCULUS OF KIDNEYS,C61 PROSTATE CA. Pt states pain RLQ, h/o renal cysts and calculus EXAM MEASUREMENTS: Right Kidney: 10.3 x 5.5 x 4.7 cm Left Kidney: 10.9 x 7.1 x 5.8 cm Right Kidney: Isoechoic lesion mid/lower lateral= 3.0 x 2.1 x 2.9 cm . Pre and postcontrast CT kidney s or postcontrast MRI kidneys is recommended for additional evaluation. Left Kidney: Cyst lower pole= 5.9 x 3.7 x 4.3 cm/ parapelvic cyst mid= 1.4 cm Bladder: Left bladder wall not visualized well due to overlying bowel gas Bilateral Jets seen: Yes There is no evidence for hydronephrosis at this point in time. No nephrolithiasis is seen. The urin obed bladder is anechoic. Bilateral ureteral jets are seen. IMPRESSION: 1. There is an isoechoic rounded mass measuring 2.9 cm at the mid inferior pole right kidney. Additio nal workup is recommended. Pre and post Contrast CT versus contrast MRI can be performed. 2. Renal cyst left kidney A Yellow level critical message alert has been initiated for Lorne Ocasio MD via the [employer] Critical Results System on 10/26/2019 8:42 AM. This message alert has been sent to Lorne abbasi MD via the preferences provided by the clinician for the receipt of Radiology Critical Findings. Edward essage ID [id number].
== END | disposition home or self-care (01) ==
LOC: RADUSWWP 16:14
PROVIDERS: ATTEND Urology
DX: N28.1 Cyst of kidney, acquired (principal); N28.89 Other specified disorders of kidney and ureter; C61 Malignant neoplasm of prostate; Z88.0 Allergy status to penicillin; Z88.1 Allergy status to other antibiotic agents; Z88.2 Allergy status to sulfonamides; Z88.5 Allergy status to narcotic agent
CPT/HCPCS: 76770

== ENCOUNTER → 2020-01-05 | Outpatient (CLI) | payer MEDICARE ==
[2020-01-05 10:55] LABS: Basophils # (A) 0.1 k/uL (0-0.2); Basophils % (A) 2 %; Eosinophils # (A) 0.4 k/uL (0-0.7); Eosinophils % (A) 8 %; HGB 13.9 gm/dL (13.0-17.5); Lymphocytes # (A) 0.7 k/uL (1.0-4.8); Lymphocytes % (A) 15 %; MCH 28.4 pg (25.0-35.0); MCHC 32.4 g/dL (31.0-37.0); MCV 87.6 fL (80.0-100.0); Mean Platelet Volume 6.9; Monocytes # (A) 0.4 k/uL (0-1.0); Monocytes % (A) 9 %; Neutrophils % (A) 64 %; Platelet Count 200 k/uL (150-450); RBC 4.91 m/uL (4.30-5.90); WBC 4.7 k/uL (3.8-10.6)
[2020-01-05 12:21] LABS: Erythrocyte Sedimentation Rate 8 mm/hr (0-15)
[2020-01-05 16:19] LABS: African American GFR (CKD) 80.6 (60.0-200.0); Albumin 4.2 g/dL (3.80-4.90); Albumin/Globulin Ratio 1.91 (1.60-3.17); Anion Gap 6.7 mmol/L (4.00-12.00); BUN/Creat Ratio 19.09 Ratio (12.00-20.00); Calcium 9.2 mg/dL (8.7-10.3); Carbon Dioxide 27.3 mmol/L (21.6-31.8); Globulin 2.2 g/dL (1.6-3.3); Non-African American GFR(CKD) 69.6 (60.0-200.0); Potassium 3.8 mmol/L (3.5-5.5); Total Bilirubin 0.6 mg/dL (0.2-1.2); Total Protein 6.4 g/dL (6.2-8.2)
== END | disposition home or self-care (01) ==
LOC: LABWHC1 10:26
PROVIDERS: ATTEND Family Medicine
DX: R10.9 Unspecified abdominal pain (principal); R60.9 Edema, unspecified
CPT/HCPCS: 36415; 80053; 83880; 84443; 85025; 85652

== ENCOUNTER → 2021-03-07 | Outpatient (CLI) | payer MEDICARE | END | disposition home or self-care (01) | DX: M47.812 Spondylosis without myelopathy or radiculopathy, cervical region (principal) ==

== ENCOUNTER → 2021-12-29 | Outpatient (CLI) | payer MEDICARE ==
[2021-12-29 14:26] LABS: Basophils # (A) 0.07 X 10*3/uL (0.00-0.10); Basophils % (A) 1.3 %; Eosinophils % (A) 3.9 %; HCT 43.4 % (39.6-50.0); Immature Grans, Automated 0.4 %; Lymphocytes # (A) 1.04 X 10*3/uL (0.90-5.00); MCHC 32.3 g/dL (32.0-37.0); MCV 89.9 fL (80.0-97.0); Mean Platelet Volume 9.2 fL (9.5-12.2); Monocytes # (A) 0.77 X 10*3/uL (0.20-1.00); Monocytes % (A) 14.8 %; NRBC Per 100 WBC 0 /100 WBCS (0.0-0.0); Neutrophils # (A) 3.09 X 10*3/uL (1.80-7.70); Neutrophils % (A) 59.6 %; Platelet Count 219 X 10*3/uL (140-440); RBC 4.83 X 10*6/uL (4.40-5.60); RDW 12.3 % (11.5-14.5); WBC 5.19 X 10*3/uL (4.50-10.00)
[2021-12-29 15:46] LABS: ALT 16 U/L (10-49); AST 20 U/L (14-35); Albumin 4.4 g/dL (3.8-4.9); Albumin/Globulin Ratio 1.63 (1.60-3.17); Alkaline Phosphatase 99 U/L (41-126); BUN/Creat Ratio 20.54 Ratio (12.00-20.00); Blood Urea Nitrogen 26.7 mg/dL (9.0-27.0); Calcium 9.5 mg/dL (8.7-10.3); Carbon Dioxide 27.7 mmol/L (20.0-27.5); Chloride 104 mmol/L (96-109); Chol/HDL Ratio 5.48 Ratio; Globulin 2.7 g/dL (1.6-3.3); Glucose 114 mg/dL (70-110); Non-African American GFR(CKD) 56.1 (60.0-200.0); Potassium 4.1 mmol/L (3.5-5.5); Sodium 141 mmol/L (135-145); Total Protein 7.1 g/dL (6.2-8.2)
== END | disposition home or self-care (01) ==
LOC: LABWHC1 10:07
PROVIDERS: ATTEND Family Medicine
DX: I10 Essential (primary) hypertension (principal); R10.9 Unspecified abdominal pain; E55.9 Vitamin D deficiency, unspecified; E87.5 Hyperkalemia
CPT/HCPCS: 36415; 80053; 80061; 82306; 85025

== ENCOUNTER → 2024-03-07 | Outpatient (CLI) | payer MEDICARE ==
--- NOTE | 2024-03-12 16:32 | BD ---
EXAMINATION TYPE: Axial Bone Density DATE OF EXAM: 03/07/2024 CLINICAL HISTORY: 68 years old Male. ICD-10 CODE: C61 C79.51 SECONDARY MALIGNANT NEOPLASM OF BONE Height: 67 Weight: 175 FRAX RISK QUESTIONS: Family History (Parent hip fracture): yes History of Fracture in Adulthood: yes Secondary Osteoporosis: no Rheumatoid Arthritis: no RISK FACTORS HISTORY OF: Surgery to Hip(right): yes When: 2019 MEDICATIONS: Thyroid Medications: no Osteoporosis Medications: no EXAM MEASUREMENTS: Bone mineral densitometry was performed using the triptap System. Bone mineral density as measured about the Lumbar spine is: ----- L1-L4(G/cm2): 1.177 T Score Values are as follows: ----- L1: -0.9 ----- L2: -1.8 ----- L3: 0.7 ----- L4: 0.8 ----- L1-L4: 0.0 Z Score Values are as follows: ----- L1: -0.7 ----- L2: -1.6 ----- L3: 0.9 ----- L4: 0.9 ----- L1-L4: 0.1 Bone mineral density has: Increased 2.3% since study of: 08/03/2016 Bone mineral density about the L hip (g/cm2): 0.869 T Score values are as follows: -----L Neck: -0.6 -----L Total: -1.1 Z Score values are as follows: -----L Neck: 0.3 -----L Total: -0.9 Bone mineral density has: Decreased -8.7% since study of: 08/03/2016 FRAX%s: The graph provided illustrates a 5.5% chance for a major osteoporotic fx and a 0.9% chance fo r the hips probability for fx in 10 years time. IMPRESSION: Normal (Values between +1 and -1 indicate normal bone mass). Consider repeating this study in 5 year s or sooner if there is some new clinical indication. NOTE: T-SCORE=SD OF THE YOUNG ADULT MEAN.
== END | disposition home or self-care (01) ==
LOC: RADBDWWP 15:38
PROVIDERS: ATTEND Internal Medicine
DX: C79.51 Secondary malignant neoplasm of bone (principal); C61 Malignant neoplasm of prostate; M85.89 Other specified disorders of bone density and structure, multiple sites
CPT/HCPCS: 77080

== ENCOUNTER → 2024-03-08 | Outpatient (CLI) | payer MEDICARE ==
[2024-03-08 12:00] LABS: African American GFR (CKD) >90 (>60 ml/min/1.73 sqM); Blood Urea Nitrogen 22 mg/dL (9-20); Non-African American GFR(CKD) 88 (>60 ml/min/1.73 sqM)
--- NOTE | 2024-03-08 13:39 | CT ---
EXAMINATION TYPE: CT urogram wo/w con DATE OF EXAM: 03/08/2024 COMPARISON: PET CT 12/19/2019, 11/27/2016 HISTORY: 68-year-old male R31.0, Gross hematuria TECHNIQUE: Contiguous axial scanning of the abdomen and pelvis performed without and with IV Contrast , patient injected with 100 mL of Isovue 300. Delayed images through the kidneys and bladder were obt ained. Coronal/sagittal reconstructions performed. 3-D reconstructions generated on a dedicated [employer] workstation. CT DLP: 2498 mGycm Automated exposure control for dose reduction was used. FINDINGS: Redemonstrated hypovascular but enhancing, slightly homogeneous mass posterior mid right kidney. Curr ently measures 3.8 x 2.8 cm. Measured 3.0 cm in 2016 and 3.3 cm in 2019. A few scattered bilateral renal cortical cysts measuring up to 4.3 cm on the left. Parapelvic cyst le ft kidney measuring up to 1.2 cm. Symmetric uptake and excretion of contrast from both kidneys. No abnormal filling defect within the r enal collecting systems or along the course of either ureter. Heart upper limits of normal in size without pericardial effusion. Lung bases clear without pleural e ffusion. No focal liver lesion or biliary ductal dilatation. Portal venous system is patent. Gallbladder, adrenal glands, spleen with small anterior splenule, pancreas within normal limits. No dilated small bowel, free fluid, or free air. No mesenteric or retroperitoneal lymphadenopathy. There is some annular thickening at the mid ascending colone, axial image 48 series 5 and image 337 s eries 12. Scattered mild to moderate stool burden. Mild left-sided colonic diverticulosis. Redundant sigmoid colon. No pericolonic inflammatory changes. Mild circumferential bladder wall thickening. No abnormal fluid collection in the pelvis or pelvic ly mphadenopathy. Bilateral vasectomy clips noted. Prostate gland either very small or surgically absent . 1.6 cm area of soft tissue nodularity in the deep subcutaneous adipose layer overlying the left glute al musculature, axial image 65 series 9. Bones: Moderate spondylotic change mid to lower lumbar spine. Sclerotic focus in T11 vertebral body, unchanged from 12/19/2019 suggesting a bone island. IMPRESSION: 1. THE PROSTATE GLAND IS EITHER SMALL OR SURGICALLY ABSENT. 2. INDETERMINATE POSTERIOR RIGHT KIDNEY MASS MEASURING 3.8 CM CURRENTLY. IT MEASURED 3.3 CM IN 2019 A ND 3.0 CM IN 2017. AN INDOLENT NEOPLASM SUCH LOW-GRADE RCC OR RENAL ADENOMA ARE NOT EXCLUDED. 3. No new suspicious kidney masses seen. No nephrolithiasis or hydronephrosis. 4. Some annular thickening along the mid ascending colon may reflect focal peristalsis. Recommend dir ect visualization to exclude a mucosal lesion if routine screening colonoscopy has not been performed . 5. 1.6 cm area of soft tissue nodularity in the deep subcutaneous fat layer overlying the left glutea l musculature. Area of posttraumatic sequela is possible with some scarring or small subcutaneous hem atoma. Recommend clinical correlation for any palpable abnormality and clinical surveillance follow-u p. If any enlarging palpable area is detected, targeted ultrasound can be performed.
== END | disposition home or self-care (01) ==
LOC: RADCTMAIN 11:13
PROVIDERS: ATTEND Urology
DX: R31.0 Gross hematuria (principal)
CPT/HCPCS: 82565; 84520; 74178; 36415; 74400; Q9967

== ENCOUNTER 2024-05-15 07:36 | Day surgery (SDC) | payer MEDICARE ==
[~2024-05-15 07:36] MED LIST changes: -ACETAMINOPHEN TAB 500 MG TAB PO ONE; -GABAPENTIN 300 MG CAP PO ONE; -LIDOCAINE 1% 20 ML VIAL (10MG/ML) FOR IV START INTRADERMA PRN; -MELOXICAM 7.5 MG TAB PO ONE; -ONDANSETRON 4 MG/2 ML VIAL IVP ONE; -ROPIVACAINE 246.25 MG, EPINEPHrine 0.5 MG, KETOROLAC 30 MG, cloNIDine HCL/PF 80 MCG, WA... MISCELLANE ONE; +TRANEXAMIC 1,000 MG/100ML-NACL 1,000 MG in SALINE 1 100ML.BAG IVPB PRN; -TRANEXAMIC ACID 1,000 MG in SODIUM CHLORIDE 0.9% 100 ML IVPB ONE; -fentaNYL (PF) 50 MCG/ML 2 ML AMP IV PRN
[2024-05-15] MEDS: IV FLUID CONTINUATION 1,000 ML IV ONE (08:16)
[2024-05-15] MEDS: LACTATED RINGERS 1,000 ML IV SCH (08:20)
[2024-05-15] MEDS: MELOXICAM 7.5 MG TAB PO PRN (08:21)
[2024-05-15] MEDS: ACETAMINOPHEN TAB 500 MG TAB PO PRN (08:21)
[2024-05-15] MEDS: GABAPENTIN 300 MG CAP PO PRN (08:21)
[2024-05-15] MEDS: DEXAMETHASONE SOD PHOSPHATE 4 MG/ML 1 ML VIAL IVP STA (08:21)
[2024-05-15] MEDS: ONDANSETRON 4 MG/2 ML VIAL IVP STA (08:22)
[2024-05-15] MEDS: MIDAZOLAM 2 MG/2 ML VIAL IV ONE (08:25)
--- NOTE | 2024-05-15 08:29 | P.ANPRN ---
Procedure Note - Anesthesia - Nerve Block Performed Left Harrison Single Time Out Performed: Yes Date of Procedure: 05/15/24 Procedure Start Time: Procedure Stop Time: Location of Patient: PreOp Indication: Acute Post-Operative Pain, Dx/Pain Location, Requested by Surgeon Sedation Type: Sedate with meaningful contact maintained Preparation: Sterile Prep Position: Supine Catheter: None Needle Types: Pajunk Needle Gauge: 21 Ultrasound used to visualize needle placement: Yes Ultrasound used to observe medication spread: Yes Injectate: 0.5% Ropivacaine (see comment for volume) (20cc with 10mg dexamethasone) Blood Aspirated: No Pain Paresthesia on Injection Noted: No Resistance on Injection: Normal Image Stored and Saved: Yes Events: Uneventful and Well Tolerated
[2024-05-15] MEDS ORDERED: ONDANSETRON 4 MG/2 ML VIAL IVP PRN (08:38)
[2024-05-15] MEDS ORDERED: HYDROmorphone 0.5 MG/0.5 ML SYRINGE IVP PRN ×3 (08:38)
[2024-05-15] MEDS ORDERED: NALOXONE 0.4 MG/ML 1 ML VIAL IV PRN (08:38)
[2024-05-15] MEDS ORDERED: MAGNESIUM HYDROXIDE 2,400 MG/30 ML CUP PO PRN (08:38)
[2024-05-15] MEDS ORDERED: HYDROcodone/APAP 7.5-325MG 1 EACH TAB PO PRN (08:40)
[2024-05-15] MEDS ORDERED: TRANEXAMIC 1,000 MG/100ML-NACL PREMIX BAG ONE (08:55)
[2024-05-15] MEDS ORDERED: ROPIVACAINE 5 MG/ML 30 ML VIAL ONE (08:55)
[2024-05-15] MEDS ORDERED: ePHEDrine 50 MG/ML 1 ML VIAL ONE (08:55)
[2024-05-15] MEDS ORDERED: fentaNYL (PF) 50 MCG/ML 2 ML AMP ONE (08:55)
[2024-05-15] MEDS ORDERED: PROPOFOL 10 MG/ML 20 ML VIAL IV ONE (08:55)
[2024-05-15] MEDS ORDERED: DEXAMETHASONE SOD PHOSPHATE 4 MG/ML 1 ML VIAL ONE (08:55)
[2024-05-15] MEDS ORDERED: MIDAZOLAM 2 MG/2 ML VIAL ONE (08:55)
[2024-05-15] MEDS: ROPIVACAINE 5 MG/ML 30 ML VIAL MISCELLANE ONE ×2 (09:34→10:04)
[2024-05-15] MEDS: LACTATED RINGERS 1,000 ML IV ONE (10:01)
--- NOTE | 2024-05-15 10:13 | P.OP ---
Date of Procedure: 05/15/24 Preoperative Diagnosis: Severe osteoarthritis left hip Postoperative Diagnosis: Severe osteoarthritis left hip Procedure(s) Performed: Left total hip arthroplasty with a direct anterior approach Implants: [employer] Polarstem standard size 6 with a collar [employer] R3, 3 hole hemispherical acetabular shell, 54 mm [employer]hew Reflection 6.5 mm cancellus screws, 20 mm, 25 mm [employer] R3, XLPE 20 acetabular liner [employer]hew Oxinium femoral head 36 mm, +0 All components were press-fit. The articulation is Oxinium on polyethylene. Anesthesia: GETA Surgeon: Uriel Valdovinos Mortising Machine Operator #1: Susan Allan Estimated Blood Loss (ml): 200 Pathology: none sent Condition: stable Disposition: PACU Indications for Procedure: After failure of conservative treatment we discussed the surgical and nonsu rgical treatment options at length. Patient wishes to proceed with a total hip arthroplasty with a direct anterior approach. Complications specific to this procedure were discussed at length, including but not limited to infection, leg length discrepancy, dislocation, nerve injury, and fracture. Covid-19 was also discussed at length with the patient, and they are aware of the current policies and procedures. The patient was given the option of delaying surgery, but they elect to proceed knowing these risks. Patient is aware of all these complications and informed consent was obtained Operative Findings: The operative findings are consistent with severe osteoarthritis of the left hip Description of Procedure: The patient was seen and evaluated in the preoperative area and the consent was reviewed. The operative site was marked with a skin marker. The patient verified the procedure and operative site. A HARRISON block was placed by anesthesia in the preoperative area. The patient was then brought to the operating room and given preoperative antibiotics intravenously. 1 g of Tranexamic acid was also given intravenously. A spinal anesthetic was administered by the anesthesia department. A Ware catheter was placed. The spinal aesthetic did not provide adequate anesthesia, so a general anesthetic was then performed. The patient was then placed on the Grafton table with the bony prominences well-padded. The hip area was then prepped with a ChloraPrep solution and draped in the usual sterile fashion. A universal timeout was then performed, which confirmed the patient's name, surgical site, ALLERGIES, and procedure being performed on the consent. Next the incision site was located at 1 cm distal and 4 cm lateral to the anterior superior iliac spine. The skin and subcutaneous tissues were sharply incised. Incision was carefully dissected down to the fascia overlying the tensor fascia krish muscle. This fascia was then incised in line with the muscle fibers. Care was taken to stay laterally in order to avoid injuring the lateral femoral cutaneous nerve. Next, using blunt finger dissection, the tensor fascia krish muscle was dissected off its investing fascia. The muscle was then carefully retracted laterally with a cobra retractor over the lateral neck of the femur. Next, the circumflex vessels were identified and cauterized using the Aquamantis device. The anterior hip capsule was then exposed. The capsule was then opened and an inverted T fashion. The retractors were then placed intracapsularly. The retractors were maintained intracapsular throughout the procedure. The proximal femur was then visualized. Fluoroscopic x-rays were then taken in order to evaluate the preoperative leg lengths. A small amount of traction was placed on the leg. The femoral neck was then osteotomized at the appropriate level above the lesser trochanter. A small wedge of bone was then removed from the remaining femoral head. Next, using a corkscrew the femoral head was removed from the acetabulum. On gross visual inspection, the femoral head had complete loss of articular cartilage and multiple periarticular osteophytes. The femoral head was then measured. Attention was then turned to the acetabulum. The acetabulum was exposed and any remaining labrum was excised. Sequential reaming of the acetabulum was performed using fluoroscopic guidance until there was a good bed of bleeding cancellus bone. When the appropriate size was reached, a trial was then placed. The position and fit of the trial was checked with fluoroscopy. The trial was then removed. Then, using fluoroscopic guidance, the final implant was impacted at 20 of anteversion and 40 of abduction, and fully seated in the acetabulum. 2 screws were then placed in the acetabulum. Again fluoroscopy was used to check position of the screws. Next, the liner was then impacted, with a 20 elevated liner located in the anterior superior quadrant. Component locking was confirmed. Attention was then directed to the femur. With the aid of the Grafton table, the femur was externally rotated to approximately 130, extended, and adducted under the opposite leg. A side hook was then placed under the proximal femur, and the side hook elevator was used to elevate the proximal femur while releasing the capsule. Retractors were then placed. A capsular release was performed, as well as a release of the conjoined tendon, which afforded excellent visualization of the proximal femur. Next, a box osteotome was used to lateralize the proximal femur. A material handler 1st shift was then used to locate the femoral canal. Sequential broaching was then performed with appropriate size which afforded excellent fixation in the proximal femur. A trial was then placed with appropriate head and neck, and the hip was gently reduced with the aid of the Grafton table. Fluoroscopy was then used to check position of the components, as well as to evaluate the leg lengths and offset. The leg lengths and offset were measured as closely as possible to ensure stability of the hip. The hip was then gently dislocated and the trials were then removed. Final implants were then impacted and the hip was again reduced. Final fluoroscopic x-rays confirmed that the components were in anatomic position. The leg lengths and offset were measured and were found to coincide with the trial measurements. The hip was also taken through range of motion, and found to be stable. The hip was then copiously irrigated with antibiotic solution with pulsatile lavage. The hip was then irrigated with Irrisept solution. The soft tissues were then injected with a ropivacaine solution. A second dose of 1 g of Tranexamic acid was also given intravenously. The fascia was then closed with 2-0 strata fix suture. The subcutaneous tissue was closed with 3-0 Vicryl. The subcuticular tissue was closed with 3-0 strata fix suture. The skin was then closed with Exofin skin glue. After the glue and dried, and Optifoam silver impregnated dressing was applied. The patient was then transferred to the recovery room in stable condition. The law office assistant BOBBY Carrasquillo was required due to the complexity of surgery, and the need for skilled senior office support assistant sosa for positioning, draping, exposure, retraction, and closure of the wound.
--- NOTE | 2024-05-15 11:04 | XR ---
EXAMINATION TYPE: XR Hip Limited LT DATE OF EXAM: 05/15/2024 COMPARISON: None HISTORY: Postop left hip replacement TECHNIQUE: AP left hip FINDINGS: Femoral prosthesis with acetabular component has been placed. No acute fracture or dislocat ion evident. Postsurgical soft tissue changes are evident. IMPRESSION: 1. No acute fractures post left hip replacement. [facility], Workstation: 3, 05/15/2024 11:01 AM
[2024-05-15] MEDS: fentaNYL (PF) 50 MCG/ML 2 ML AMP IV PRN (11:45)
[2024-05-15] MEDS: SODIUM CHLORIDE 0.9% 1,000 ML IV SCH (16:11)
[2024-05-15] MEDS: HYDROcodone/APAP 7.5-325MG 1 EACH TAB PO PRN (18:13)
--- NOTE | 2024-05-15 18:15 | P.CONS ---
History of Present Illness - Reason for Consult Consult date: 05/15/24 Medical Management Requesting physician: Uriel Valdovinos - History of Present Illness History of Presenting Illness: Patient is a pleasant 68-year-old male with a past medical history of CAD, hypertension, prostate cancer status post prostatectomy, celiac disease, previously known left bundle branch block, GERD, and osteoarthritis. Patient is currently admitted under orthopedic surgery team and underwent elective left total hip arthroplasty secondary to severe osteoarthritis of left hip. We were consulted for medical management throughout hospitalization. Patient was seen and fully evaluated in room 478. Patient reports currently experiencing no postoperative pain or discomfort. Patient states he currently feels blessed with the way he feels and could not ask for anything more right now. Patient denies having any headache, lightheadedness, dizziness, chest pain, palpitations, shortness of breath, abdominal pain, nausea, vomiting, or experiencing any numbness/tingling/focal weakness in his extremities. Patient does have Ware catheter in place..He is tolerating oral intake with a regular diet and denies having any further questions, needs, complaints, or concerns at this time. Review of systems: Pertinent positives and negatives as discussed in HPI, a complete review of systems was performed and all other systems are negative. Physical exam: Vital signs reviewed and stable. General: Nontoxic, no distress and appears stated age. Derm: Skin warm and dry, normal coloration for ethnicity. Head: Atraumatic, normocephalic and symmetric. Eyes: EOM's intact, no lid lag, and anicteric sclera Mouth: no lip lesions, mucus membranes moist Cardiovascular: regular rate and rhythm with normal S1S2, no murmur, positive posterior tibial pulses bilaterally, and cap refill < 2 seconds. Lungs: Respirations even, regular, and unlabored on room air. Lungs CTA bilaterally, no rhonchi, no rales, no wheezing, and no accessory muscle usage. Abdominal: soft, nontender to palpation, no guarding, no appreciable organomegaly Ext: Movement and sensation intact. No gross muscle atrophy, no edema, no contractures. Postoperative dressing in place to left lateral hip/thigh. Neuro: Speech clear, face symmetrical and CN II-XII grossly intact with no noted focal neuro deficits Psych: Alert and oriented to person, place, time, and situation. Appropriate and pleasant affect. Assessment and Plan of Care: Status post left total hip arthroplasty Severe osteoarthritis of left hip Management per primary admitting orthopedic surgery team including DVT prophylaxis, pain management, wound/dressing management, weightbearing, and PT/OT. Currently DVT prophylaxis with aspirin 325 mg twice daily Hypertension CAD status post stent Previously known left bundle branch block Continue daily medication regimen with clonidine 0.1 mg tablets twice daily, lisinopril 40 mg daily, and chlorthalidone 25 mg daily. Celiac's disease Continue gluten-free diet as tolerated. Data reviewed: Preoperative labs completed 05/04/2024 reviewed. CBC showing WBC count 5.47, hemoglobin 13.7, platelet count of 208,000. Coagulation profile normal findings. BMP was unremarkable with sodium 140, potassium 3.8, chloride 103, bicarb 25.4, anion gap of 11.6, BUN 21.4, creatinine 0.9, GFR greater than 90. Vital signs reviewed. Blood pressure 121/80, heart rate 83, respiratory rate 17, temp 98.0 F, and SpO2 of 96% on room air. Thank you for allowing us to participate in the care of this pleasant patient. Do not hesitate to contact us with questions. Someone can be reached [facility] all hours of the day at [phone] or via Ark[employer]. Patient was seen independently by Nurse Practitioner. This document was prepared using [email or web address] dictation software. Please allow for errors in core java engineer while rare they do occur. Darrel Michael NP rendered care for this patient independently, reviewed the findings and plan as documented in the note above. I did not physically speak with or examine the patient on this date. Past Medical History Past Medical History: Cancer, CVA/TIA, GERD/Reflux, GI Bleed, Hypertension, Osteoarthritis (OA), Prostate Disorder Additional Past Medical History / Comment(s): PROSTATE CANCER, left BUNDLE BLOCK, HEART MURMUR, (2) TIA'S, CELIAC DISEASE-FOLLOWS GLUTEN FREE DIET,HX OF SHINGLES X3, CYSTS ON KIDNEYS, HIATAL HERNIA. frequent urination History of Any Multi-Drug Resistant Organisms: None Reported Past Surgical History: Adenoidectomy, Heart Catheterization, Hernia Repair, Joint Replacement, Orthopedic Surgery, Prostate Surgery, Tonsillectomy Additional Past Surgical History / Comment(s): CERVICAL SPINAL FUSION X2-BONE TAKEN FROM HIP FOR CERVICAL FUSION WHICH HERNIATED X2 AT SITE., PROSTATECTOMY, KENYON ROTATOR CUFF REPAIR, ING HERNIA. rt hip replaced Past Anesthesia/Blood Transfusion Reactions: No Reported Reaction, Motion Sickness Smoking Status: Never smoker - Past Family History Father Family Medical History: Cancer, Hypertension, Prostate Disorder Additional Family Medical History / Comment(s): prostate cancer at age 87 Mother Family Medical History: Cancer Additional Family Medical History / Comment(s): colon ca, Medications and Allergies Home Medications Medication Instructions Recorded Confirmed Type cloNIDine HCL [Catapres] 0.1 mg PO BID PRN 04/14/16 05/15/24 History lisinopriL [Zestril] 40 mg PO DAILY #60 tab 04/16/16 05/15/24 Rx Chlorthalidone 25 mg PO DAILY 04/25/17 05/15/24 History Aspirin 325 mg PO BID #60 tab 05/15/24 Rx HYDROcodone/APAP 7.5-325MG [[place] 1 - 2 tab PO Q6H PRN #32 tab 05/15/24 Rx 7.5-325] Sennosides [Senokot] 2 tab PO DAILY PRN #60 tablet 05/15/24 Rx Allergies Allergy/AdvReac Type Severity Reaction Status Date / Time gluten Allergy Abdominal Verified 05/15/24 07:57 Pain hydrocodone bitartrate Allergy Abdominal Verified 05/15/24 07:57 [From Vicodin] Pain nitrofurantoin Allergy Unknown Verified 05/15/24 07:57 [From Macrobid] nitrofurantoin Allergy Unknown Verified 05/15/24 07:57 macrocrystalline [From Macrobid] Penicillins Allergy Rash/Hives Verified 05/15/24 07:57 Sulfa (Sulfonamide Allergy Rash/Hives Verified 05/15/24 07:57 Antibiotics) sulfacetamide sodium Allergy Rash/Hives Verified 05/15/24 07:57 [From Sulfamide] clindamycin AdvReac Unknown Verified 05/15/24 07:57 Physical Exam Vitals: Vital Signs Temp Pulse Pulse Resp BP BP Pulse Ox 05/15/24 15:48 98.0 F 83 17 121/80 96 05/15/24 14:00 77 16 127/69 99 05/15/24 13:00 61 18 111/69 96 05/15/24 12:30 77 18 125/76 95 05/15/24 12:00 60 16 115/70 99 05/15/24 11:45 59 L 16 117/72 99 05/15/24 11:30 68 16 111/67 96 05/15/24 11:15 61 16 110/63 100 05/15/24 11:00 68 16 127/78 100 05/15/24 10:45 69 16 117/69 100 05/15/24 10:29 97.7 F 67 16 127/77 100 05/15/24 08:28 67 16 113/69 94 L 05/15/24 08:03 98.0 F 57 L 16 132/84 98 Intake and Output 05/15/24 05/15/24 05/15/24 06:59 14:59 22:59 Intake Total 1750 Output Total 260 200 Balance 1490 -200 Intake: IV 1750 Output: Urine 60 200 Estimated Blood Loss 200 Other: Weight 77.1 kg Results CBC & Chem 7: 05/16/24 05:00 05/16/24 05:00
[2024-05-15 21:25] VITALS: RESP 16
[2024-05-15] MEDS: ASPIRIN 325 MG TAB PO SCH (21:30)
[2024-05-15] MEDS: SENNOSIDES-DOCUSATE SODIUM 1 EACH TAB PO SCH (21:30)
[2024-05-15] MEDS: cloNIDine HCL 0.1 MG TAB PO SCH (21:30)
[2024-05-15] MEDS: BACLOFEN 10 MG TAB PO PRN (22:05)
[2024-05-16] MEDS: CHLORTHALIDONE 25 MG TAB PO SCH (08:36)
[2024-05-16 08:37] VITALS: BP 115/71; TEMP 97.7
[2024-05-16] MEDS: lisinopriL 20 MG TAB PO SCH (08:37)
[2024-05-16 08:46] LABS: Basophils # (A) 0.02 X 10*3/uL (0.00-0.10); Basophils % (A) 0.2 %; Eosinophils # (A) 0.02 X 10*3/uL (0.04-0.35); Eosinophils % (A) 0.2 %; MCH 30.3 pg (27.0-32.0); MCHC 34.3 g/dL (32.0-37.0); MCV 88.4 FL (80.0-97.0); Mean Platelet Volume 9.2 FL (9.5-12.2); NRBC Per 100 WBC 0 X 10*3/uL (0.00-0.01); Neutrophils # (A) 7.86 X 10*3/uL (1.80-7.70); Platelet Count 184 X 10*3/uL (140-440); RBC 3.96 X 10*6/uL (4.40-5.60); RDW 11.6 % (11.5-14.5); WBC 9.96 X 10*3/uL (4.50-10.00)
[2024-05-16 08:49] VITALS: PULSE 75
[2024-05-16 09:03] LABS: BUN/Creat Ratio 24.88 Ratio (12.00-20.00); Blood Urea Nitrogen 19.9 mg/dL (9.0-27.0); Calcium 8.7 mg/dL (8.7-10.3); Carbon Dioxide 23.7 mmol/L (21.6-31.8); Chloride 104 mmol/L (96-109); Glucose 98 mg/dL (70-110); Magnesium 1.7 mg/dL (1.5-2.4); Sodium 138 mmol/L (135-145)
[2024-05-16] MEDS ORDERED: ORPHENADRINE 30 MG/ML 2 ML VIAL IVP STA (10:04)
[2024-05-16] MEDS: MAGNESIUM SULFATE-D5W PMX 1 GM in DEXTROSE/WATER 1 100ML.BAG IVPB SCH (10:33)
--- NOTE | 2024-05-16 10:41 | P.DS ---
Providers Expected date of discharge: 05/16/24 Attending physician: Uriel Valdovinos Consults: 05/15/24 08:38 Consult Physician Routine Consulting Provider: Ada Hernandez Consult Reason/Comments: medical management Do you want consulting provider notified?: Yes Primary care physician: Andres Quinn - Discharge Diagnosis(es) (1) Osteoarthritis of left hip Current Visit: Yes Status: Acute (2) S/P total hip arthroplasty Current Visit: Yes Status: Acute Hospital Course: This is a 68-year-old male with known history of degenerative arthritis of the left hip. The patient presented for evaluation as an outpatient. After discussion and consideration patient elects to proceed with total hip arthroplasty. The patient is seen preoperatively by Dr. Valdovinos and medically cleared for surgery by their primary care physician. Patient is admitted to [facility] on 05/15/2024 for total hip arthroplasty. The procedure is performed without complication or sequelae. The patient is doing well postoperatively. Labs and vital signs are stable on day of discharge. On day of discharge patient's hip incision is healing well. There is minimal erythema. There is no drainage noted at this time. There is minimal soft tissue swelling to the hip and thigh. Patient has full foot and ankle motion without difficulty or pain. Calf is soft and nontender to palpation. Neurovascular status to the left lower extremity is intact. Patient is discharg ed home in good condition. Please see med rec for accurate list of home medications. Plan - Discharge Summary Discharge Rx Participant: No New Discharge Prescriptions: New Sennosides [Senokot] 2 tab PO DAILY PRN #60 tablet PRN Reason: Constipation Aspirin 325 mg PO BID #60 tab HYDROcodone/APAP 7.5-325MG [[place] 7.5-325] 1 - 2 tab PO Q6H PRN #32 tab PRN Reason: Pain No Action cloNIDine HCL [Catapres] 0.1 mg PO BID PRN PRN Reason: Blood Pressure - High lisinopriL [Zestril] 40 mg PO DAILY #60 tab Chlorthalidone 25 mg PO DAILY Discharge Medication List cloNIDine HCL [Catapres] 0.1 mg PO BID PRN 04/14/16 [History] lisinopriL [Zestril] 40 mg PO DAILY #60 tab 04/16/16 [Rx] Chlorthalidone 25 mg PO DAILY 04/25/17 [History] Aspirin 325 mg PO BID #60 tab 05/15/24 [Rx] HYDROcodone/APAP 7.5-325MG [[place] 7.5-325] 1 - 2 tab PO Q6H PRN #32 tab 05/15/24 [Rx] Sennosides [Senokot] 2 tab PO DAILY PRN #60 tablet 05/15/24 [Rx] Follow up Appointment(s)/Referral(s): Residential Home[facility] [NON-STAFF] - As Needed Uriel Valdovinos DO [Doctor of Osteopathic Medicine] - 2 Weeks Activity/Diet/Wound Care/Special Instructions: Weightbearing as tolerated with walker. Leave dressing intact. Dressing may be removed by home care nurse or by patient in 7 days. Then change dressing twice daily until follow up. May shower with initial dressing intact and after removal. If dressing become saturated, please remove. Please take aspirin 325mg twice daily for 30 days to prevent blood clots. Recommend use of compression stockings daily until follow up to help prevent swelling and blood clots. May remove at night before sleeping. Please follow[facility]up with [facility] in 2 weeks and call with any questions or concerns, . Discharge Disposition: HOME WITH HOME HEALTH SERVICES
--- NOTE | 2024-05-16 13:59 | P.PN ---
Subjective Progress Note Date: 05/16/24 Hospital course: Patient is a pleasant 68-year-old male with a past medical history of CAD, hypertension, prostate cancer status post prostatectomy, celiac disease, previously known left bundle branch block, GERD, and osteoarthritis. Patient is currently admitted under orthopedic surgery team and underwent elective left total hip arthroplasty secondary to severe osteoarthritis of left hip. We were consulted for medical management throughout hospitalization. Physical exam: Patient was seen and fully evaluated at bedside. Patient sitting up in chair this morning and appears to be doing well. Ware catheter was just removed and patient has not yet urinated since removal of catheter. Patient does report tightness throughout his left hip and thigh and currently has ice pack in place. Patient reports mild pain but states controlled with current pain medication regimen. Patient reports he was able to ambulate with PT and did the stairs without difficulties. Vital signs reviewed and stable. General: Nontoxic, no distress and appears stated age. Derm: Skin warm and dry, normal coloration for ethnicity. Head: Atraumatic, normocephalic and symmetric. Eyes: EOM's intact, no lid lag, and anicteric sclera Mouth: no lip lesions, mucus membranes moist Cardiovascular: regular rate and rhythm with normal S1S2, no murmur, positive posterior tibial pulses bilaterally, and cap refill < 2 seconds. Lungs: Respirations even, regular, and unlabored on room air. Lungs CTA bilaterally, no rhonchi, no rales, no wheezing, and no accessory muscle usage. Abdominal: soft, nontender to palpation, no guarding, no appreciable organomegaly Ext: Movement and sensation intact. No gross muscle atrophy, no edema, no contractures. Postoperative dressing in place to left lateral hip/thigh. Neuro: Speech clear, face symmetrical and CN II-XII grossly intact with no noted focal neuro deficits Psych: Alert and oriented to person, place, time, and situation. Appropriate and pleasant affect. Assessment and Plan of Care: Status post left total hip arthroplasty Severe osteoarthritis of left hip Management per primary admitting orthopedic surgery team including DVT p rophylaxis, pain management, wound/dressing management, weightbearing, and PT/OT. Currently DVT prophylaxis with aspirin 325 mg twice daily Acute postoperative blood loss anemia This is an expected and stable finding with preoperative hemoglobin of 13.7 and postoperative hemoglobin of 12.0. No active signs of bleeding, no need for transfusion or further intervention/testing at this time. Hypomagnesemia Magnesium 1.7 orders placed for 2 g magnesium sulfate IVPB. Hypertension CAD status post stent Previously known left bundle branch block Continue daily medication regimen with clonidine 0.1 mg tablets twice daily, lisinopril 40 mg daily, and chlorthalidone 25 mg daily. Celiac's disease Continue gluten-free diet as tolerated. Data reviewed: Postoperative labs reviewed. CBC showing postoperative blood loss anemia with preoperative hemoglobin of 13.7 and postoperative hemoglobin of 12.0. BMP unremarkable. Magnesium slightly low at 1.7. Vital signs reviewed. Blood pressure 115/71, heart rate 71, respiratory rate 16, temp 97.7 F, and SpO2 of 97% on room air. Once patient is able to urinate independently without any difficulties, he will be medically optimized and cleared from medical standpoint for discharge once cleared by primary admitting orthopedic surgery team. Thank you for allowing us to participate in the care of this pleasant patient. Do not hesitate to contact us with questions. Someone can be reached from the [facility] hospitalist group all hours of the day at [phone] or via authorGEN. Patient was seen independently by Nurse Practitioner. This document was prepared using [employer] dictation software. Please allow for errors in dialysis rn while rare they do occur. Darrel Michael NP rendered care for this patient independently, reviewed the findings and plan as documented in the note above. I did not physically speak with or examine the patient on this date. Objective - Vital Signs Vital signs: Vital Signs Temp 98 F 05/16/24 02:00 Pulse 87 05/16/24 02:00 Resp 16 05/15/24 21:30 BP 146/75 05/16/24 02:00 Pulse Ox 99 05/16/24 02:00 FiO2 Intake & Output 05/15/24 05/16/24 05/16/24 18:59 06:59 18:59 Intake Total 1868 Output Total 460 450 Balance 1408 -450 Weight 77.1 kg Intake: IV 1750 Oral 118 Output: Urine 260 450 Estimated Blood Loss 200 Other: # Voids 1 - Labs CBC & Chem 7: 05/16/24 05:00 05/16/24 05:00
--- NOTE | 2024-05-30 18:22 | FL ---
EXAMINATION TYPE: FL guidance operating room, XR Hip Limited LT DATE OF EXAM: 05/15/2024 10:19 AM COMPARISON: Pre Operative Images if available both CT/MRI or plain film CLINICAL INDICATION: Male, 68 years old with history of LEFT ANTERIOR HIP; TECHNIQUE: FL guidance operating room, XR Hip Limited LT, multiple fluoroscopic images provided for p rocedure. Total fluoroscopy time: 28 seconds Total submitted images to PACS: 3 DAP: 1.4325 mGym2 Gycm2 uGym2 cGycm2 FINDINGS: Fluoroscopic images during internal fixation/arthroplasty demonstrate fixation hardware in appropriat e position. Hardware appears intact. No immediate complication identified. IMPRESSION: 1. No evidence for intraoperative complication. 2. Please see the operative/procedural note for further details. [facility], , 05/30/2024 6:19 PM
== END 2024-05-16 15:05 | disposition home health service (06) ==
LOC: OR 07:36 → 4SSUR 14:59 → OR 05-16 15:05
PROVIDERS: ATTEND Orthopaedic Surgery
DX: M16.12 Unilateral primary osteoarthritis, left hip (principal); E83.42 Hypomagnesemia; G89.18 Other acute postprocedural pain; I10 Essential (primary) hypertension; Z85.46 Personal history of malignant neoplasm of prostate; Z86.73 Personal history of transient ischemic attack (TIA), and cerebral infarction without residual deficits; Z88.0 Allergy status to penicillin; Z88.1 Allergy status to other antibiotic agents; Z88.2 Allergy status to sulfonamides; Z88.5 Allergy status to narcotic agent; Z95.5 Presence of coronary angioplasty implant and graft; Z79.899 Other long term (current) drug therapy; Z79.82 Long term (current) use of aspirin
CPT/HCPCS: 64447; 73501; 80048; 83735; 85025

== ENCOUNTER → 2024-09-06 | Outpatient (CLI) | payer MEDICARE ==
--- NOTE | 2024-09-06 16:12 | CT ---
EXAMINATION TYPE: CT abdomen pelvis w con DATE OF EXAM: 09/06/2024 COMPARISON: 10/21/2017 CLINICAL INDICATION: Male, 69 years old with history of R30.0 DYSURIA; PHH, dysuria and lower abdomin al pain, hx of prostate ca TECHNIQUE: Performed with Oral Contrast and with IV Contrast, patient injected with 100 mL of Isovue 300. CT DLP: 855.[address] CTDI: mGy Automated exposure control for dose reduction was used. FINDINGS: The lung bases are clear. The gallbladder is normal without distention, wall thickening, pericholecystic fluid or gallstones. T here is no biliary ductal dilatation. There is no focal mass or organomegaly involving the liver, pancreas, spleen or adrenal glands. There has been interval increase in the hyperdense or enhancing solid renal mass and the posterior ri ght kidney. Previously measured 2.8 cm and now measures 3.8 cm. It is highly suspicious for neoplasm. A large nonobstructing right renal calculus adjacent to the mass seen on the prior study is no longer present. There is a stable Bosniak 2F left renal cyst. No solid left renal mass. There is no hydronephrosis bi laterally. The caliber the abdominal aorta is normal is no retroperitoneal adenopathy or hemorrhage. The bowel loops are normal in caliber and there is no evidence of dilatation or obstruction. No infla mmatory changes are identified in the bowel wall or mesentery. There is no free intraperitoneal air or fluid. No pelvic mass, free fluid, abscess or adenopathy. 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 There are no focal osseous lesions. Bilateral hip prostheses. IMPRESSION: 1. Significant interval growth in a solid or enhancing right renal mass, highly suspicious for neopla sm as described above. Further evaluation is warranted. 2. Stable left renal cysts as described above. 3. Resolution of the previous right renal calcification. 4. Surgical absence of the prostate gland [facility], , 09/06/2024 4:10 PM
== END | disposition home or self-care (01) ==
LOC: RADCTMAIN 12:57
PROVIDERS: ATTEND Family Medicine
DX: N28.9 Disorder of kidney and ureter, unspecified (principal); R30.0 Dysuria; N28.1 Cyst of kidney, acquired; Z90.79 Acquired absence of other genital organ(s); Z85.46 Personal history of malignant neoplasm of prostate
CPT/HCPCS: 74177; Q9967